=== PATIENT | male | born 1935 | race Caucasian/White ===

== ENCOUNTER 2017-04-19 13:23 | Inpatient (IN) | payer OTHER ==
[~2017-04-19] VITALS: Ht 170.2 cm; Wt 68.1 kg
[~2017-04-19 13:23] MED LIST: AMIODARONE HCL200 M1 PO; AMIODARONE HCL200 MG PO; AMIODARONE HCL400 M1 PO; ASPIR 8181 MG PO; ATORVASTATIN CA20 M1 PO; CARDIZEM I125 MG/25 IV; CARVEDILOL3.125 MG PO; CARVEDILOL6.25 MG PO; CIPRO 500MG (E500 MG PO; CLOPIDOGREL75 MG PO; COREG 12.5MG12.5 MG PO; FINASTERIDE5 M1 PO; LASIX20 M1 PO; LEVOXYL88 MCG PO; LIPITOR20 M2 PO; LISINOPRIL10 MG PO; MATZIM LA360 MG PO; METOPROLOL SUC100 M1 PO; METOPROLOL SUC200 M2 PO; MULTAQ 400MG400 MG PO; NASONEX0.05 MG/Ac; NITROFURANTOIN100 MG PO; OXYBUTYNIN5 MG PO; PANTOPRAZOLE SO40 M1 PO; PRINIVIL 5MG5 MG PO; PRINIVIL10 M1 PO; PROTONIX 20MG T20 MG PO; RIVA15T PO; SIMVASTATIN20 MG; SIMVASTATIN20 MG PO; SYNTHROID0.075 MG PO; TAMSULOSIN HCL0.4 M1 PO; TAMSULOSIN HYD0.4 MG PO; TYLENOL XSTR500 MG PO; XARELTO10 MG PO; XARELTO15 M2 PO; XARELTO15 MG PO
--- NOTE | 2017-04-19 14:21 | NUR ---
C/O WEAKNESS, COUGH, SOB X 5 DAYS. DXD WITH FLU ON 04/[address] STEVE. ALSO STATES HE FELL LAST NIGHT DUE TO WEAKNESS, LANDED ON BACK. DENIES PAIN.
--- NOTE | 2017-04-19 14:48 | NUR ---
PT TO ROOM16 BY WHEELCHAIR, CHANGED INTO HOSPITAL GOWN, PLACED ON PILING SETTER -PACED 70'S, O2SAT 88% ON RA, PT PLACED ON O2 NC 2.5L WITH O2SAT IMPROVEMENT 95%. RENE.SAM AT BEDSIDE FOR PT EVAL.
--- NOTE | 2017-04-19 14:53 | ED DYSPNEA/ASTHMA COMPLAINT ---
History of Present Illness General Chief Complaint: Lower Extremity Problems Stated Complaint: UNABLE TO WALK Source: patient Exam Limitations: no limitations Vital Signs & Intake/Output Vital Signs & Intake/Output Vital Signs Date Time Temp Pulse Resp B/P B/P Pulse O2 O2 Flow FiO2 Mean Ox Delivery Rate 04/19 1733 101.1 04/19 1730 101.1 69 18 166/74 97 Nasal 2.0L Cannula 04/19 1422 98.4 102 26 180/69 87 Room Air Allergies Coded Allergies: amoxicillin (Severe, HIVES 02/02/16) Reconcile Medications Amiodarone HCl 200 MG TABLET 1 TAB PO DAILY A FIB PLEASE START TAKING 08/21 ONWARDS PRIOR TO THAT TAKE THE 400 MG TABLET PRESCRIBED Atorvastatin Calcium 20 MG TABLET 1 TAB PO QPM CHOLESTEROL (Reported) Finasteride 5 MG TABLET 1 TAB PO DAILY PROSTATE (Reported) Furosemide (Lasix) (Unknown Strength) TABLET (Unknown Dose) PO DAILY DIURETIC (Reported) Levothyroxine Sodium 100 MCG TABLET 1 TAB PO DAILY AC THYROID (Reported) Lisinopril (Prinivil) 10 MG TABLET 1 TAB PO DAILY BP (Reported) Metoprolol Succinate 200 MG TAB.ER.24H 1 TAB PO QPM HEART/BLOOD (Reported) Pantoprazole Sodium 40 MG TABLET.DR 1 TAB PO QAM GI (Reported) Reason to Stop at ADM: on omeprazole in the hospital Primidone 50 MG TABLET 2 TAB PO QHS TREMORS (Reported) Rivaroxaban (Xarelto) 15 MG TABLET 1 TAB PO QPM BLOOD THINNER (Reported) Tamsulosin HCl 0.4 MG CAP.ER.24H 1 CAP PO QHS PROSTATE (Reported) Triage Note: C/O WEAKNESS, COUGH, X 5 DAYS. DXD WITH FLU ON 04/[address] STEVE. ALSO STATES HE FELL LAST NIGHT DUE TO WEAKNESS, LANDED ON BACK. Triage Nurses Notes Reviewed? yes Onset: Abrupt Duration: day(s):, constant, getting worse Timing: recent history Severity: moderate, severe HPI: 81-year-old male comes into emergency room with complaints of persistent cough, increased weakness, increased confusion and inability to walk. Patient was diagnosed with the flu. A Z-Quique by his primary care doctor. Patient has been persistently coughing. He was supposed to get a chest x-ray today but he was worse so they came here to the hospital. Denies chest pain abdominal pain or urinary symptoms. Denies any other associated symptoms. (ELO PEACE) Past History Travel History Traveled to [place] past 21 day No Medical History Any Pertinent Medical History? see below for history Neurological: vertigo, left endarterectomy EENT: CATARACTS REMOVED [place] Cardiovascular: AFIB, aflutter, cardiomyopathy, hypertension, hyperlipidemia, mitral regurgitation, paroxysmal atrial fibrillation mild cardiomyopathy (LVEF low normal) Respiratory: mild restrictive disease Gastrointestinal: GERD Hepatic: CHOLECYSTECTOMY Renal: benign prost hyperplasia Musculoskeletal: ARTHRITIS Endocrine: hypothyroidism Other Medical Hx: BPH, lt. carotid artery disease History of MRSA: No History of VRE: No History of CDIFF: No Pneumonia Vaccine: 11/14/13 Influenza Vaccine: 08/09/16 Surgical History Surgical History: LEFT SIDED PACEMAKER Psychosocial History Who do you live with Spouse Services at Home None What is your primary language Palestinian Tobacco Use: Never used ETOH Use: denies use Family History Family History, If Any: FATHER, , Age 40-50; Cause: Myocardial infarct. FH: CAD (coronary artery disease) BROTHER FH: CAD (coronary artery disease) SISTER FH: CAD (coronary artery disease) Hx Contributory? No (ELO PEACE) Review of Systems Review of Systems Constitutional: Reports: see HPI. EENTM: Reports: no symptoms. Respiratory: Reports: see HPI. Cardiovascular: Reports: no symptoms. GI: Reports: no symptoms. Genitourinary: Reports: no symptoms. Musculoskeletal: Reports: no symptoms. Skin: Reports: no symptoms. Neurological/Psychological: Reports: see HPI. Hematologic/Endocrine: Reports: no symptoms. Immunologic/Allergic: Reports: no symptoms. All Other Systems: Reviewed and Negative (ELO PEACE) Physical Exam Physical Exam General Appearance: well developed/nourished, alert, awake, mild distress Head: atraumatic, normal appearance Eyes: Bilateral: normal appearance. Ears, Nose, Throat: normal pharynx, normal ENT inspection Neck: normal inspection Respiratory: normal breath sounds, no respiratory distress Cardiovascular: irregularly irregular Gastrointestinal: soft Extremities: normal inspection Neurologic/Psych: no motor/sensory deficits Skin: intact, normal color Core Measures ACS in differential dx? No Severe Sepsis Present: No Septic Shock Present: No (ELO PEACE) Progress Differential Diagnosis: asthma, AMI, bronchitis, costochondritis, CHF, COPD, musculoskeletal pain, pericarditis, pulmonary embolism, pneumonia, pneumothorax, rib fracture, unstable angina, lisinopril induced cough, amiodarone induced COPD , Plan of Care: Orders Procedure Date/time Status Regular Diet 04/19 D Active LACTIC ACID 04/19 1941 Active Intake & Output 04/19 1810 Active Patient Data 04/19 1702 Active OXYGEN SETUP (GEN) 04/19 1654 Active Saline Lock 04/19 1654 Active Admit to inpatient 04/19 1654 Active Vital Signs 04/19 1654 Active Activity/Ambulation 04/19 1654 Active Code Status 04/19 1654 Active LACTIC ACID 04/19 1641 Complete URINALYSIS 04/19 1620 Complete Add-on Test (ER Only) 04/19 1609 Active BLOOD CULTURE 04/19 1609 Active Telemetry/Claims Assistant 04/19 1452 Active TROPONIN LEVEL 04/19 1452 Complete COMPREHENSIVE METABOLIC PANEL 04/19 1452 Complete CBC WITHOUT DIFFERENTIAL 04/19 1452 Complete B-TYPE NATRIURETIC PEP (BNP) 04/19 1452 Complete EKG 04/19 1452 Active Current Medications Sig/Andie Start time Last Medication Dose Stop Time Status Admin Ceftriaxone Sodium 1,000 MG ONCE ONE 04/19 1615 UNVr 04/19 (Rocephin) 04/19 1616 1733 Laboratory Tests 04/19/17 1723: Lactic Acid 1.2 04/19/17 1627: Urinalysis MOD H, Urine Color YEL, Urine Clarity CLDY H, Urine pH 6.0, Ur Specific [place] >= 1.030, Urine Protein 100 H, Urine Ketones NEG, Urine Nitrite POS H, Urine Bilirubin NEG, Urine Urobilinogen 0.2, Ur Leukocyte Esterase SMALL H, Ur Microscopic SEDIMENT EXAMINED, Urine RBC 1-3, Urine WBC 15 -25 H, Ur Epithelial Cells MOD H, Urine Bacteria PACKD H, Hyaline Casts 1-3 H, Granular Casts 5-10 H, Urine Mucus FEW, Urine Hemoglobin MOD H, Urine Glucose NEG 04/19/17 1529: Anion Gap 13, Estimated GFR 36 L, BUN/Creatinine Ratio 18.9, Glucose 99, Calcium 9.2, Total Bilirubin 1.2, AST 74 H, ALT 61, Alkaline Phosphatase 118, Troponin I 0.22 *H, Edv-W-[place]zz[place] Pept 7850 H, Total Protein 7.6, Albumin 3.7, Globulin 3.9, Albumin/Globulin Ratio 0.9 L, CBC w Diff MAN DIFF ORDERED, RBC 3.90 L, MCV 94.9 H, MCH 31.5 H, RDW 12.9, MPV 8.8, Gran % 91.5 H, Lymphocytes % 3.7 L, Monocytes % 4.4, Eosinophils % 0.3, Basophils % 0.1, Absolute Granulocytes 11.9 H, Segmented Neutrophils 92 H, Absolute Lymphocytes 0.5 L, Lymphocytes 4 L, Monocytes 3, Absolute Monocytes 0.6, Eosinophils 1, Absolute Eosinophils 0, Absolute Basophils 0, Platelet Estimate ADEQUATE, Normocytic RBCs VERIFIED, Polychromasia 1+, PUBS MCHC 33.2, Fld Total RBCs Counted 100 Microbiology 04/19 1722 BLOOD: Blood Culture - RECD 04/19 171 BLOOD: Blood Culture - RECD Diagnostic Imaging: Viewed by Me: Radiology Read. Discussed w/RAD: Radiology Read. Radiology Impression: EXAM TYPE: RAD - XRY-CHEST XRAY, PA AND LATERAL EXAMINATION: XR CHEST CLINICAL INFORMATION: Cough. COMPARISON: 08/12/2016 TECHNIQUE: 2 views of the chest were obtained. FINDINGS: Lung volumes are diminished. There are fairly diffuse patchy opacities identified bilaterally, most notably in the right mid and left lower lung celeste, without definite pleural effusions. Differential includes infiltrate and evolving pneumonia versus atypical-appearing pulmonary edema. Clinical correlation and follow up imaging should be considered. The heart appears mildly enlarged containing dual pacer leads with the generator on the left. IMPRESSION: Fairly diffuse patchy opacities bilaterally. Findings are most suggestive of infiltrate versus somewhat atypical-appearing pulmonary edema. Clinical correlation and interval follow up are recommended. DICTATED BY: MARLENE DIALLO MD DATE/TIME DICTATED: 04/19/171542 AGRICULTURE MECHANIC:ANDREA DATE/TIME TRANSCRIBED:04/19/171542 Initial ED EKG: normal sinus rhythm, rate (74), nonspecific ST T wave chg (ELO PEACE) Departure Departure Disposition: STILL A PATIENT Condition: Stable Clinical Impression Primary Impression: Acute exacerbation of CHF (congestive heart failure) Secondary Impressions: Elevated troponin, Hypoxia, Pneumonia Referrals: JADIEL STEVE MD (PCP/Family) Departure Forms: Customer Survey General Discharge Information (ELO PEACE) Admission Note Spoke With: ONEAL NIETO MD Documentation of Exam: Documentation of any treatments & extenuating circumstances including Concerns Regarding Discharge (functional status, medication knowledge or non-compliance, living conditions, etc.) that warrant an admission rather than observation: Supplemental oxygen and IV diuresis IV antibiotics serial lab exam cardiac monitoring cardiology evaluation and medication adjustment continuing care discharge planning PA/SOCK MENDER Co-Sign Statement Statement: ED Attending supervision documentation- x I saw and evaluated the patient. I have also reviewed all the pertinent lab results and diagnostic results. I agree with the findings and the plan of care as documented in the PA's/SOCK MENDER's documentation. [] I have reviewed the ED Record and agree with the PA's/SOCK MENDER's documentation. [] Additions or exceptions (if any) to the PAs/SOCK MENDER's note and plan are summarized below: [] (ИРИНА EDWARDS,NUZHAT) Critical Care Note Critical Care Note Critical Care Time: 30-74 min (40) (ELO PEACE)
--- NOTE | 2017-04-19 15:00 | NUR ---
PT TO XRAY
[2017-04-19] MEDS ORDERED: PRIMIDONE50 M1 PO (15:19)
[2017-04-19] MEDS ORDERED: LEVOTHYROXINE100 MC1 PO (15:19)
[2017-04-19 15:40] LABS: ABSOLUTE BASOPHIL COUNT 0 /CUMM (0.0-0.2); ABSOLUTE EOSINOPHIL COUNT 0 /CUMM (0.0-0.7); ABSOLUTE GRANULOCYTE CT 11.9 /CUMM (1.4-6.5); ABSOLUTE LYMPH COUNT 0.5 /CUMM (1.2-3.4); ABSOLUTE MONOCYTE COUNT 0.6 /CUMM (0.10-0.60); BASOPHIL % 0.1 % (0.0-2.0); EOSINOPHIL % 0.3 % (0-5); GRANULOCYTE % 91.5 % (42.2-75.2); MEAN CORPUSCULAR HGB 31.5 PG (27.0-31.0); MEAN CORPUSCULAR HGB CONC 33.2 G/DL (33.0-37.0); MEAN CORPUSCULAR VOLUME 94.9 FL (80.0-94.0); MEAN PLATELET VOLUME 8.8 FL (7.4-10.4); PLATELET COUNT 144 /CUMM (130-400); RBC DISTRIBUTION WIDTH 12.9 % (11.5-14.5)
--- NOTE | 2017-04-19 16:00 | RADIOLOGY REPORT ---
EXAMINATION: XR CHEST CLINICAL INFORMATION: Cough. COMPARISON: 08/12/2016 TECHNIQUE: 2 views of the chest were obtained. FINDINGS: Lung volumes are diminished. There are fairly diffuse patchy opacities identified bilaterally, most notably in the right mid and left lower lung celeste, without definite pleural effusions. Differential includes infiltrate and evolving pneumonia versus atypical-appearing pulmonary edema. Clinical correlation and follow up imaging should be considered. The heart appears mildly enlarged containing dual pacer leads with the generator on the left. IMPRESSION: Fairly diffuse patchy opacities bilaterally. Findings are most suggestive of infiltrate versus somewhat atypical-appearing pulmonary edema. Clinical correlation and interval follow up are recommended.
--- NOTE | 2017-04-19 16:19 | NUR ---
CRITICAL TEST RESULTS [id number] JAEL MACDONALD 81 M TESTS AND RESULTS: TROPONIN 0.22 Results received and read back by: PADMINI MOREIRA Results received date and time: 04/19/17 1619 The following provider was notified of the results, and read the results back: SAM LÓPEZ Notified date and time: 04/19/17 at 1615
--- NOTE | 2017-04-19 17:33 | History & Physical ---
UZMA EDWARDS,BENOIT 04/19/17 1779: General Information and HPI MD Statement: I have seen and personally examined JAEL MACDONALD and documented this H&P. The patient is a 81 year old M who presented with a patient stated chief complaint of []. Exam Limitations: no limitations History of Present Illness: Patient is a 81-year-old male with significant past medical history of vertigo, history of left endarterectomy, paroxysmal atrial fibrillation, hypertension, hyperlipidemia, MR, cardiomyopathy s/p pacemaker, GERD, hypothyroidism, history of cholecystectomy, BPH, arthritis, presented with chief complaints of generalized weakness, cough, shortness of breath since last 6 days. Patient claims that he was told as having flu 04/16, by Dr. Steve, and advised to have chest x-ray, but he was not able to get that done. Yesterday he felt very weak and lousy. At 4 o'clock in the morning when he was trying to get out of the comboard, he lost his balance and fell down. He is also complaining of cough with sputum, headache, diarrhea. Denies fever, chest pain, palpitation, swelling in the legs, increase number of pillows. Personal history- Now a days he stopped walking because of general weakness, cough, shortness of breath. He quit his smoking 30 years ago, he denies for alcohol and IV drug abuse. Leather Seasoner -Dr. Grady. Allergies/Medications Allergies: Coded Allergies: amoxicillin (Severe, HIVES 02/02/16) Home Med list Amiodarone HCl 200 MG TABLET 1 TAB PO DAILY A FIB PLEASE START TAKING 08/21 ONWARDS PRIOR TO THAT TAKE THE 400 MG TABLET PRESCRIBED Atorvastatin Calcium 20 MG TABLET 1 TAB PO QPM CHOLESTEROL (Reported) Finasteride 5 MG TABLET 1 TAB PO DAILY PROSTATE (Reported) Furosemide 20 MG TABLET 2 TAB PO DAILY DIURETIC (Reported) Levothyroxine Sodium 100 MCG TABLET 1 TAB PO DAILY AC THYROID (Reported) Lisinopril (Prinivil) 10 MG TABLET 1 TAB PO DAILY BP (Reported) Metoprolol Succinate 200 MG TAB.ER.24H 1 TAB PO QPM HEART/BLOOD (Reported) Pantoprazole Sodium 40 MG TABLET. 1 TAB PO QAM GI (Reported) Reason to Stop at ADM: on omeprazole in the hospital Primidone 50 MG TABLET 2 TAB PO QHS TREMORS (Reported) Rivaroxaban (Xarelto) 15 MG TABLET 1 TAB PO QPM BLOOD THINNER (Reported) Tamsulosin HCl 0.4 MG CAP.ER.24H 1 CAP PO QHS PROSTATE (Reported) Past History Travel History Traveled to [place] past 21 day No Medical History Neurological: vertigo, left endarterectomy EENT: CATARACTS REMOVED YUHAAVIATAM Cardiovascular: AFIB, aflutter, cardiomyopathy, hypertension, hyperlipidemia, mitral regurgitation, paroxysmal atrial fibrillation mild cardiomyopathy (LVEF low normal) Respiratory: mild restrictive disease Gastrointestinal: GERD Hepatic: CHOLECYSTECTOMY Renal: benign prost hyperplasia Musculoskeletal: ARTHRITIS Endocrine: hypothyroidism Other Medical Hx: BPH, lt. carotid artery disease History of MRSA: No History of VRE: No History of CDIFF: No Pneumonia Vaccine: 11/14/13 Influenza Vaccine: 08/09/16 Surgical History Surgical History: LEFT SIDED PACEMAKER Past Family/Social History Family History Relations & Conditions if any FATHER, , Age 40-50; Cause: Myocardial infarct. FH: CAD (coronary artery disease) BROTHER FH: CAD (coronary artery disease) SISTER FH: CAD (coronary artery disease) Psychosocial History Who Do You Live With? spouse Services at Home: None Primary Language: Algerian ETOH Use: denies use Living Will? no Functional Ability ADLs Independent: dressing, eating, toileting, bathing. Ambulation: independent IADLs Independent: shopping, housework, finances, food prep, telephone, transportation , medication admin. Review of Systems Review of Systems Constitutional: Reports: malaise, weakness. Denies: chills, fever. Cardiovascular: Denies: chest pain, orthopena, peripheral edema. Respiratory: Reports: cough, short of breath, sputum production, wheezing. GI: Reports: diarrhea. Denies: abdominal pain, bloating, constipation. Musculoskeletal: Reports: back pain. Skin: Denies: no symptoms. Neurological/Psychological: Denies: no symptoms. Exam & Diagnostic Data Last 24 Hrs of Vital Signs/I&O Vital Signs Date Time Temp Pulse Resp B/P B/P Pulse O2 O2 Flow FiO2 Mean Ox Delivery Rate 04/19 1900 98.4 63 16 138/78 98 Nasal 2.0L Cannula 04/19 1850 Nasal 2.0L Cannula 04/19 1817 99.8 04/19 1815 99.8 69 20 171/76 97 Nasal 2.0L Cannula 04/19 1733 101.1 04/19 1730 101.1 69 18 166/74 97 Nasal 2.0L Cannula 04/19 1450 95 Nasal 2.0L Cannula 04/19 1422 98.4 102 26 180/69 87 Room Air Intake & Output 04/19 1600 04/19 0800 06 0000 Intake Total Output Total Balance Patient 67.132 kg Weight Weight Reported by Patient Measurement Method Physical Exam General Appearance Alert, Oriented X3, Cooperative, No Acute Distress Skin flushing of the skin of the face Cardiovascular Normal S1, Normal S2 Lungs Normal Air Movement, occasional crackles Abdomen Soft, No Tenderness Neurological Normal Speech, he is hard of hearing , otherewise oriented to time place and person, he was moving all his limbs Extremities No Clubbing, No Cyanosis, No Edema Vascular Normal Pulses, Pulses Symmetrical Assessment/Plan Assessment: Patient is a 81-year-old male with significant past medical history of vertigo, history of left endarterectomy, paroxysmal atrial fibrillation, hypertension, hyperlipidemia, MR, cardiomyopathy s/p pacemaker, GERD, hypothyroidism, history of cholecystectomy, BPH, arthritis, presented with chief complaints of generalized weakness, cough, shortness of breath since last 6 days Vital signs -temperature 101.1, pulse 69, respiratory rate 18, blood pressure 166/74, SPO2 97% on 2 liters of nasal cannula Pertinent labs-hemoglobin 12.3, WBC 13, MCV 94.9, granulocytes 91.5, BUN 34, creatinine 1.8 (*baseline creatinine is 1), GFR 36, urine analysis-WBC 15-25, leukocyte esterase small, nitrite positive CXR -Fairly diffuse patchy opacities bilaterally. Findings are most suggestive of infiltrate versus somewhat atypical-appearing pulmonary edema. Echocardiogram 08/13/16 - LVEF-50%,MIld LAD,Mild LVH, Moderate MR,Right ventricular systolic pressure estimated at 42 mmHg. Plan - Pneumonia due to secondary bacterial infection, with hx of flu - * We'll admit the patient into general medical floor * We will give oxygen to keep SPO2 more than 92% * Please keep head end of the bed elevated * We will send blood culture, respiratory culture and follow them * We'll follow serum lactic acid level * Will start patient on injection ceftriaxone and azithromycin * Strict intake output charting Acute on chronic CHF * Troponin-0.22 * It can be due to demand ischemia. Chest x-ray showing ? Pulmonary edema * We'll follow serial troponins and EKGs * We'll place a cardiology consult and follow the recommendation * Strict intake output charting * Patient recently had echocardiogram Urine tract infection * urine analysis-WBC 15-25, leukocyte esterase small, nitrite positive * Patient denies any active symptoms * We'll follow the urine culture AF with controlled ventricular rate, coronary artery disease, hypertension, hypothyroidism * Continue Xeralto and all other home medication including metoprolol, lisinopril, furosemide, levothyroxine Diet -heart healthy diet DVT prophylaxis -ALP S/Xarelto CODE status - DNR/DNI As Ranked By This Provider Problem List: 1. Elevated troponin 2. Pneumonia Core Measures/Miscellaneous Acute Coronary Syndrome ACS Diagnosis: No Cerebrovascular Accident CVA/TIA Diagnosis: No Congestive Heart Failure CHF Diagnosis: No VTE (View Protocol) VTE Risk Factors: Age > 40, Immobility, paresis [facility] prophylaxis d/t: No contraindications No VTE Pharm Prophylaxis d/t: No contraindications VTE Diagnosis: No VTE Type: NONE VTE Confirmed by (Test): NONE Sepsis (View Protocol) Severe Sepsis Present: No Septic Shock Septic Shock Present: No Miscellaneous Documentation Attending Case Discussed With: ONEAL NIETO MD Primary Care Physician: JADIEL STEVE MD Patient sees these Specialists Leather Seasoner-Farshad Farrell MD Level of Patient Care: Telemetry ASHA CHUA 04/19/17 2891: Resident Review Statement Resident Statement: examined this patient, discussed with chemist intern Other Findings: Patient is 81-year-old gentleman with past medical history significant for paroxysmal atrial fibrillation on , metoprolol and amiodarone for rate control, history of CAD status post stent placement in September 2015, history of atrial flutter status post ablation, hypothyroidism, hypertension, dyslipidemia, left carotid endarterectomy came with chief complaint of worsening fatigue, weakness and persistent cough from couple of weeks. Patient had these symptoms for couple of weeks and also he had some subjective fevers as well for that he was seen by his PCP who told him he might having flu and also he recommended him to have chest x-ray which she couldn't get one because of worsening weakness. He denied chest pain, palpitations, any urinary or bowel complaints. He admits that he had off-and-on dizziness lately and had a mechanical fall last night when he lost balance while getting up from the commode. He denied any loss of consciousness or hitting his head. His vital signs on admission were temperature 98.4 later on he spiked fever of 101.1, pulse 102, respiratory rate 26, blood pressure 180/69 and he was saturating 87% on room air later on he was saturating 97% on 2 L nasal cannula Absent admission were WBC count 13.0, hemoglobin 12.3, hematocrit 37.0, platelet count 144, Sodium 136, potassium 4.7, BUN/creatinine 34, creatinine 1.8, troponin 0.22, proBNP 7850 Chest x-ray showed Fairly diffuse patchy opacities bilaterally. Findings are most suggestive of infiltrate versus somewhat atypical-appearing pulmonary edema. EKG showed normal sinus rhythm with no ST-T wave changes Physical examination Patient is alert and oriented 3 HEENT PERRLA, EOMI, neck supple, no JVD Chest bilateral rhonchi and basal crepitations Heart S1-S2 normal irregularly irregular heart rate with no added sounds Abdomen soft no organomegaly Extremities no edema or cyanosis No neurological deficit noted Assessment and plan Patient is 81-year-old gentleman with past medical history significant for paroxysmal atrial fibrillation on , metoprolol and amiodarone for rate control, history of CAD status post stent placement in September 2015, history of atrial flutter status post ablation, hypothyroidism, hypertension, dyslipidemia, left carotid endarterectomy came with chief complaint of worsening fatigue, weakness and persistent cough from couple of weeks. Chest x-ray was significant for air space opacity at the same time patient had elevated white cell count with elevated proBNP and troponins most likely is combination of CHF exacerbation and pneumonia with demand ischemia Problem list 1. Community-acquired pneumonia 2. CHF exacerbation 3. History of paroxysmal atrial fibrillation on Joey 4. Hypothyroidism 5. History of dyslipidemia 6. History of hypertension 8. Leukocytosis most likely due to underlying pneumonia Plan 1. We will admit patient on telemetry floor 2. Cardiology consultation 3. We will trend troponins and EKG to peak 4. We'll start patient on ceftriaxone and azithromycin for community-acquired pneumonia 5. We will send blood cultures as well as sputum cultures 6. We will send lactic acid as patient meets criteria for sirs 7. We will continue all his home medications 8. Patient was given 60 mg IV furosemide in ED we will hold any intravenous diuresis for now and we will follow cardiology recommendations regarding IV diuresis but we will continue his home medications Heart healthy diet Pharmacological DVT prophylaxis Patient is DNI DNR GERSON EDAWRDSONEAL 04/19/17 2100: Attending MD Review Statement Attending Statement Attending MD Statement: examined this patient, discuss w/resident/PA/DOWEL STICKER OPERATOR, agreed w/resident/PA/DOWEL STICKER OPERATOR, reviewed EMR data (avail) Attending Assessment/Plan: 81M PMH atrial fibrillation on amiodarone and Xarelto, history of a flutter status post ablation, CAD s/p PCI and stents in September 2015, peripheral vascular disease, history of left-sided carotid endarterectomy, hypothyroidism, HTN, HLD, 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 Febrile 101 on admission, rapid atrial fibrillation initially but now controlled in 80's after Cardizem, found to have bilateral opacities on CXR and mildly elevated troponin to 0.22. No ST changes on EKG. 1. Bilateral lower lobe pneumonia 2. Acute on chronic systolic CHF 3. Elevated troponin 4. Shortness of breath 5. Rapid atrial fibrillation 6. History of CAD Plan - Admit to telemetry - Start Ceftriaxone and Azithromycin - Sputum and blood cultures - Given 80mg IV Lasix in ED, monitor fluid status - Trend cardiac enzymes to peak - Serial EKG - Cardiology consult - Continue home medications - Given ASA in ED - DVT PPx
--- NOTE | 2017-04-19 17:35 | NUR ---
IV EST, PT MEDICATED WITH LASIX PER EMAR. URINAL PROVIDED. 2 SETS OF BC DRAWN AND SENT TO LAB. PT MEDICATED WITH ROCEPHINE AND ZITHROMAX INFUSING PER EMAR. TEMP 101.1, SAM LÓPEZ MADE AWARE, PT MEDICATED WITH TYLENOL PER EMAR. FOOD TRAY ORDERED.
--- NOTE | 2017-04-19 18:02 | NUR ---
ASSIGNMENT [id number]
--- NOTE | 2017-04-19 18:10 | NUR ---
REPORT GIVEN TO WAYNE BENITO TO TELE.
--- NOTE | 2017-04-19 18:16 | NUR ---
VOLODYMYR SFAFF AT BEDSIDE
--- NOTE | 2017-04-19 18:50 | NUR ---
ADMISSION NOTE: PATIENT ARRIVES TO ROOM VIA STRETCHER; A/OX3; VSS ON 2L; TELE MONITOR PATIENT IS NSR BUT HAS LCW PACER; PATIENT COMFORTED INTO BED; DENIES PAIN AND CP; ORIENTED TO ROOM AND CALL ALMANZAR; BED LOCKED IN LOW POSITION
[2017-04-19 19:00] VITALS: BP 138/78
[2017-04-19] MEDS ORDERED: FUROSEMIDE20 M1 PO (19:10)
--- NOTE | 2017-04-19 21:04 | Admission Certification ---
Admission Certification Certification Statement - As attending physician, I certify that at the time of - admission, based on clinical presentation, severity of - symptoms, need for further diagnostic testing and - therapeutic interventions, and risk of adverse outcomes - without in-hospital treatment, in my clinical assessment, - this patient requires an acute hospital stay for a minimum - of two nights or longer. I have also considered psychsocial - factors such as support system, advanced age, financial - issues, cognitive issues, and failed out-patient treatments, - past re-admission history, safety of patient, and lack of - compliance as applicable. Specific rationale supporting this admission is: Pneumonia with elevated troponin level
[2017-04-20] VITALS: BP 152/80
--- NOTE | 2017-04-20 00:08 | Event Note ---
Event Note Event Note: Follow up troponins 0.22-->0.44-->0.99, non specific T wave changes in lateral leads, no other changes noted. Patient not complaining of chest pain or shortness of breath. Called and informed second worker Dyeing Machine Tender regarding upward trend of troponins, recomended to continue to trend EKG and trop and more likely to be demand ischemia. Continue with current treatment. Patient is on Xarelto.
[2017-04-20 03:21] LABS: ABSOLUTE BASOPHIL COUNT 0 /CUMM (0.0-0.2); ABSOLUTE EOSINOPHIL COUNT 0.2 /CUMM (0.0-0.7); ABSOLUTE GRANULOCYTE CT 9.2 /CUMM (1.4-6.5); ABSOLUTE LYMPH COUNT 0.7 /CUMM (1.2-3.4); ABSOLUTE MONOCYTE COUNT 0.6 /CUMM (0.10-0.60); BASOPHIL % 0.3 % (0.0-2.0); EOSINOPHIL % 1.6 % (0-5); HEMATOCRIT 33.6 % (42-52); MEAN CORPUSCULAR HGB 31.5 PG (27.0-31.0); MEAN CORPUSCULAR HGB CONC 33.2 G/DL (33.0-37.0); MEAN CORPUSCULAR VOLUME 94.8 FL (80.0-94.0); MEAN PLATELET VOLUME 8.5 FL (7.4-10.4); PLATELET COUNT 175 /CUMM (130-400); RBC DISTRIBUTION WIDTH 12.6 % (11.5-14.5); RED BLOOD CELL CT 3.54 /CUMM (4.70-6.10); WHITE BLOOD CELL COUNT 10.8 /CUMM (4.8-10.8)
[2017-04-20 03:22] LABS: GRANULOCYTE % 85.5 % (42.2-75.2)
[2017-04-20 08:08] VITALS: BP 154/76
--- NOTE | 2017-04-20 10:27 | Patient Discharge Instructions ---
Discharge Instructions General Discharge Information You were seen/treated for: community acquired pneumonia Special Instructions: please follow up with your PCP with in a week of discharge. Please follow up with your shrinker with in a week of discharge. please take medication as advised. Diet Continue normal diet: No Recommended Diet: Heart Healthy Activity Full Activity/No Limits: No (as tolerated) Acute Coronary Syndrome Inclusion Criteria At DC or during hospital stay patient has or had the following: ACS DIAGNOSIS No Discharge Core Measures Meds if any: Prescribed or Continued at Discharge Meds if any: NOT Prescribed or Continued at Discharge Congestive Heart Failure Inclusion Criteria At DC or during hospital stay patient has or had the following: CHF DIAGNOSIS No Discharge Core Measures Meds if any: Prescribed or Continued at Discharge Meds if any: NOT Prescribed or Continued at Discharge Cerebrovascular accident Inclusion Criteria At DC or during hospital stay patient has or had the following: CVA/TIA Diagnosis No Discharge Core Measures Meds if any: Prescribed or Continued at Discharge Meds if any: NOT Prescribed or Continued at Discharge Venous thromboembolism Inclusion Criteria VTE Diagnosis No VTE Type NONE VTE Confirmed by (Test) NONE Discharge Core Measures - Per Current guidelines, there needs to be overlap - treatment for the first 5 days of Warfarin therapy. - If discharged on Warfarin prior to 5 days of - overlap therapy, the patient will need to be - assessed for post discharge needs including - *Post discharge parental anticoagulation - *Warfarin and/or parental anticoagulation education - *Follow up date to check INR post discharge At least 5 days overlap therapy as Inpatient No Meds if any: Prescribed or Continued at Discharge Note: Overlap Therapy is Warfarin and Anticoagulant Meds if any: NOT Prescribed or Continued at Discharge
--- NOTE | 2017-04-20 11:25 | Cons- Cardiology ---
General Information and HPI Consulting Request Date of Consult: 04/20/17 Requested By: MELLY EDWARDS,AMEE Loja Reason for Consult: CAD, cardiomyopathy Primary political analyst: Dr. 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 He presents to [facility] with a chief complaint of a few days of weakness associated with persistent cough productive of small amounts of clear sputum. Did note some associated shortness of breath but no associated chest pain, palpitations, orthopnea, paroxysmal nocturnal dyspnea, or increasing lower extremity edema. He was noted to be febrile on admission. He was also noted to possibly be in A. fib initially although telemetry and ECG shows sinus rhythm. On my interview with him this morning his main complaint was continued cough and weakness. Denies any headache, slurring of speech, syncope, or focal weakness. He does complain of poor appetite. Allergies/Medications Allergies: Coded Allergies: amoxicillin (Severe, HIVES 02/02/16) Home Med List: Amiodarone HCl 200 MG TABLET 1 TAB PO DAILY A FIB PLEASE START TAKING 08/21 ONWARDS PRIOR TO THAT TAKE THE 400 MG TABLET PRESCRIBED Atorvastatin Calcium 20 MG TABLET 1 TAB PO QPM CHOLESTEROL (Reported) Finasteride 5 MG TABLET 1 TAB PO DAILY PROSTATE (Reported) Furosemide 20 MG TABLET 2 TAB PO DAILY DIURETIC (Reported) Levothyroxine Sodium 100 MCG TABLET 1 TAB PO DAILY AC THYROID (Reported) Lisinopril (Prinivil) 10 MG TABLET 1 TAB PO DAILY BP (Reported) Metoprolol Succinate 200 MG TAB.ER.24H 1 TAB PO QPM HEART/BLOOD (Reported) Pantoprazole Sodium 40 MG TABLET.DR 1 TAB PO QAM GI (Reported) Reason to Stop at ADM: on omeprazole in the hospital Primidone 50 MG TABLET 2 TAB PO QHS TREMORS (Reported) Rivaroxaban (Xarelto) 15 MG TABLET 1 TAB PO QPM BLOOD THINNER (Reported) Tamsulosin HCl 0.4 MG CAP.ER.24H 1 CAP PO QHS PROSTATE (Reported) Current Medications: Current Medications Sig/Andie Start time Last Medication Dose Route Stop Time Status Admin Acetaminophen 650 MG Q6P PRN 04/19 1930 AC PO Acetaminophen 0 .STK-MED ONE 04/19 1740 DC PO Acetaminophen 975 MG ONCE ONE 04/19 1730 DC 04/19 PO 04/19 1731 1733 Amiodarone HCl 200 MG DAILY 04/19 1913 AC 04/20 PO 0920 Atorvastatin Calcium 20 MG QPM 04/19 2200 AC 04/19 PO 2150 Azithromycin 500 MG DAILY@1800 04/20 1800 AC Sodium Chloride 250 ML IV Azithromycin 500 MG ONCE ONE 04/19 1615 DC 04/19 Sodium Chloride 250 ML IV 04/19 1714 1733 Benzonatate 100 MG TID 04/20 1000 AC 04/20 PO 0922 Benzonatate 100 MG TIDPRN PRN 04/20 0430 DC 04/20 PO 0619 Ceftriaxone Sodium 1,000 MG DAILY@1800 04/20 1800 AC IV Ceftriaxone Sodium 0 .STK-MED ONE 04/19 1638 DC .ROUTE Ceftriaxone Sodium 1,000 MG ONCE ONE 04/19 1615 DC 04/19 IV 04/19 1616 1733 Finasteride 5 MG DAILY 04/19 1913 AC 04/20 PO 0920 Furosemide 40 MG DAILY 04/20 1000 AC 04/20 PO 0920 Furosemide 0 .STK-MED ONE 04/19 1637 DC IV Furosemide 60 MG ONCE ONE 04/19 1630 DC 04/19 IV 04/19 1631 1733 Guaifenesin/ 10 ML TID 04/20 1000 AC 04/20 Dextromethorphan PO 0922 Guaifenesin/ 10 ML Q4P PRN 04/20 0245 DC Dextromethorphan PO Ibuprofen 600 MG Q6P PRN 04/19 1930 DC PO Levothyroxine Sodium 0.1 MG DAILY AC 04/20 0700 AC 04/20 PO 0619 Lisinopril 10 MG DAILY 04/20 1000 AC 04/20 PO 0920 Metoprolol Succinate 200 MG DAILY 04/20 1000 AC 04/20 PO 0921 Oxycodone HCl 10 MG Q6P PRN 04/19 1930 AC PO Potassium Chloride 40 MEQ ONCE ONE 04/20 1600 AC PO 04/20 1601 Potassium Chloride 40 MEQ BID 04/20 0356 DC 04/20 PO 04/20 1001 0619 Primidone 100 MG AT BEDTIME 04/19 2200 AC 04/20 PO 0145 Rivaroxaban 15 MG QPM 04/190 AC 04/19 PO 2150 Tamsulosin HCl 0.4 MG AT BEDTIME 04/19 2200 AC 04/19 PO 2150 Review of Systems Review of Systems: Review of systems as per HPI. The remainder of a 10 point review of systems was reviewed and was otherwise negative. Past History Travel History Traveled to [place] past 21 day No Medical History Neurological: vertigo, left endarterectomy EENT: CATARACTS REMOVED [place] Cardiovascular: AFIB, aflutter, cardiomyopathy, hypertension, hyperlipidemia, mitral regurgitation, paroxysmal atrial fibrillation mild cardiomyopathy (LVEF low normal) Respiratory: mild restrictive disease Gastrointestinal: GERD Hepatic: CHOLECYSTECTOMY Renal: benign prost hyperplasia Musculoskeletal: ARTHRITIS Endocrine: hypothyroidism Other Medical Hx: BPH, lt. carotid artery disease Surgical History Surgical History: LEFT SIDED PACEMAKER Family History Relations & Conditions If Any: FATHER, , Age 40-50; Cause: Myocardial infarct. FH: CAD (coronary artery disease) BROTHER FH: CAD (coronary artery disease) SISTER FH: CAD (coronary artery disease) Psychosocial History Who Do You Live With? spouse Services at Home: None Primary Language: German Smoking Status: Former Smoker ETOH Use: denies use Living Will? no Functional Ability ADLs Independent: dressing, eating, toileting, bathing. Ambulation: independent IADLs Independent: shopping, housework, finances, food prep, telephone, transportation , medication admin. ECHO Results (as available) Report: May 2015: [id number] moderate mitral regurgitation with no significant pulmonary hypertension Exam & Diagnostic Data Vital Signs and I&O Vital Signs Date Time Temp Pulse Resp B/P B/P Pulse O2 O2 Flow FiO2 Mean Ox Delivery Rate 04/20 0921 150/70 04/20 0920 150/70 04/20 0920 150/70 04/20 0826 95 Nasal 2.0L Cannula 04/20 0808 98.8 76 18 154/76 96 Nasal 2.0L Cannula 04/20 0000 Nasal 2.0L Cannula 04/20 0000 98.1 66 16 152/80 97 Nasal Cannula 04/19 2153 Nasal 2.0L Cannula 04/19 2150 142/90 04/19 215 60 142/90 04/19 1900 98.4 63 16 138/78 98 Nasal 2.0L Cannula 04/19 1850 Nasal 2.0L Cannula 04/19 1817 99.8 04/19 1815 99.8 69 20 171/76 97 Nasal 2.0L Cannula 04/19 1733 101.1 04/19 1730 101.1 69 18 166/74 97 Nasal 2.0L Cannula 04/19 1450 95 Nasal 2.0L Cannula 04/19 1422 98.4 102 26 180/69 87 Room Air Intake & Output 04/20 0804/20 0000 04/19 1600 04/19 0800 04/19 0000 Intake Total 150 490 Output Total 100 400 Balance 50 90 Intake, IV 0 250 Intake, Oral 150 240 Number 0 Bowel Movements Output, Urine 100 400 Patient 148 lb 148 lb 148 lb Weight Weight Chair scale Chair scale Reported by Patient Measurement Method Physical Exam: General: no apparent distress. Alert. Eyes: No obvious scleral icterus. HEENT: No jugular venous distention or abnormal jugular venous pulsations. Cardiovascular: Normal intensity S1/S2. Regular. Pacemaker noted. Respiratory: Mildly decreased air entry without rales Abdomen: Soft, nontender with no guarding or rebound tenderness. Musculoskeletal: No clubbing or cyanosis noted, no edema Skin: No obvious rashes or ulcerations. Neurologic: No gross focal deficits noted. Labs/Jonathon Results: Laboratory Tests 04/20 04/20 04/20 0900 0300 0300 Chemistry Sodium (137 - 145 mmol/L) 138 Potassium (3.5 - 5.1 mmol/L) 3.2 L Chloride (98 - 107 mmol/L) 102 Carbon Dioxide (22 - 30 mmol/L) 25 Anion Gap (5 - 16) 11 BUN (9 - 20 mg/dL) 35 H Creatinine (0.7 - 1.2 mg/dL) 1.9 H Estimated GFR (>60 ml/min) 34 L BUN/Creatinine Ratio (7 - 25 %) 18.4 Lactic Acid (0.7 - 2.1 mmol/L) 1.9 Magnesium (1.6 - 2.3 mg/dL) 2.5 H Troponin I (<0.11 ng/ml) 1.45 *H 0.99 *H Hematology CBC w Diff NO MAN DIFF REQ WBC (4.8 - 10.8 /CUMM) 10.8 RBC (4.70 - 6.10 /CUMM) 3.54 L Hgb (14.0 - 18.0 G/DL) 11.1 L Hct (42 - 52 %) 33.6 L MCV (80.0 - 94.0 FL) 94.8 H MCH (27.0 - 31.0 PG) 31.5 H RDW (11.5 - 14.5 %) 12.6 Plt Count (130 - 400 /CUMM) 175 MPV (7.4 - 10.4 FL) 8.5 Gran % (42.2 - 75.2 %) 85.5 H Lymphocytes % (20.5 - 51.1 %) 6.7 L Monocytes % (1.7 - 9.3 %) 5.9 Eosinophils % (0 - 5 %) 1.6 Basophils % (0.0 - 2.0 %) 0.3 Absolute Granulocytes (1.4 - 6.5 /CUMM) 9.2 H Absolute Lymphocytes (1.2 - 3.4 /CUMM) 0.7 L Absolute Monocytes (0.10 - 0.60 /CUMM) 0.6 Absolute Eosinophils (0.0 - 0.7 /CUMM) 0.2 Absolute Basophils (0.0 - 0.2 /CUMM) 0 PUBS MCHC (33.0 - 37.0 G/DL) 33.2 04/19 04/19 04/19 04/19 2236 2030 2030 1723 Chemistry Lactic Acid (0.7 - 2.1 mmol/L) Cancelled 1.9 1.2 Troponin I (<0.11 ng/ml) 0.44 *H 04/19 04/19 1627 1529 Chemistry Sodium (137 - 145 mmol/L) 136 L Potassium (3.5 - 5.1 mmol/L) 4.7 Chloride (98 - 107 mmol/L) 102 Carbon Dioxide (22 - 30 mmol/L) 21 L Anion Gap (5 - 16) 13 BUN (9 - 20 mg/dL) 34 H Creatinine (0.7 - 1.2 mg/dL) 1.8 H Estimated GFR (>60 ml/min) 36 L BUN/Creatinine Ratio (7 - 25 %) 18.9 Glucose (65 - 99 mg/dL) 99 Calcium (8.4 - 10.2 mg/dL) 9.2 Total Bilirubin (0.2 - 1.3 mg/dL) 1.2 AST (17 - 59 U/L) 74 H ALT (21 - 72 U/L) 61 Alkaline Phosphatase (< 127 U/L) 118 Troponin I (<0.11 ng/ml) 0.22 *H [id number] Pept (<125 pg/mL) 7850 H Total Protein (6.3 - 8.2 g/dL) 7.6 Albumin (3.5 - 5.0 g/dL) 3.7 Globulin (1.9 - 4.2 gm/dL) 3.9 Albumin/Globulin Ratio (1.1 - 2.2 %) 0.9 L Hematology CBC w Diff MAN DIFF ORDERED WBC (4.8 - 10.8 /CUMM) 13.0 H RBC (4.70 - 6.10 /CUMM) 3.90 L Hgb (14.0 - 18.0 G/DL) 12.3 L Hct (42 - 52 %) 37.0 L MCV (80.0 - 94.0 FL) 94.9 H MCH (27.0 - 31.0 PG) 31.5 H RDW (11.5 - 14.5 %) 12.9 Plt Count (130 - 400 /CUMM) 144 MPV (7.4 - 10.4 FL) 8.8 Gran % (42.2 - 75.2 %) 91.5 H Lymphocytes % (20.5 - 51.1 %) 3.7 L Monocytes % (1.7 - 9.3 %) 4.4 Eosinophils % (0 - 5 %) 0.3 Basophils % (0.0 - 2.0 %) 0.1 Absolute Granulocytes (1.4 - 6.5 /CUMM) 11.9 H Segmented Neutrophils (42.2 - 75.2 %) 92 H Absolute Lymphocytes (1.2 - 3.4 /CUMM) 0.5 L Lymphocytes (20.5 - 51.1 %) 4 L Monocytes (1.7 - 9.3 %) 3 Absolute Monocytes (0.10 - 0.60 /CUMM) 0.6 Eosinophils (0 - 5.0 %) 1 Absolute Eosinophils (0.0 - 0.7 /CUMM) 0 Absolute Basophils (0.0 - 0.2 /CUMM) 0 Platelet Estimate (ADEQUATE) ADEQUATE Normocytic RBCs VERIFIED Polychromasia 1+ PUBS MCHC (33.0 - 37.0 G/DL) 33.2 Other Body Source Fld Total RBCs Counted (%) 100 Urines Urinalysis MOD H Urine Color (YEL,AMB,STR) YEL Urine Clarity (CLEAR) CLDY H Urine pH (5.0 - 8.0) 6.0 Ur Specific [place] (1.001 - 1.035) >= 1.030 Urine Protein (NEG,<30 MG/DL) 100 H Urine Ketones (NEG) NEG Urine Nitrite (NEG) POS H Urine Bilirubin (NEG) NEG Urine Urobilinogen (0.1 - 1.0 EU/dl) 0.2 Ur Leukocyte Esterase (NEG) SMALL H Ur Microscopic SEDIMENT EXAMINED Urine RBC (0 - 5 /HPF) 1-3 Urine WBC (0 - 2 /HPF) 15-25 H Ur Epithelial Cells (NONE,FEW) MOD H Urine Bacteria (NEG/NONE) PACKD H Hyaline Casts (0/LPF) 1-3 H Granular Casts (NONE /LPF) 5-10 H Urine Mucus (FEW,NONE) FEW Urine Hemoglobin (NEG) MOD H Urine Glucose (N MG/DL) NEG Diagnostic Data EKG Results Tracing was personally reviewed and shows sinus rhythm at 72 bpm with poor wave progression CXR Results IMPRESSION: Fairly diffuse patchy opacities bilaterally. Findings are most suggestive of infiltrate versus somewhat atypical-appearing pulmonary edema. Clinical correlation and interval follow up are recommended. Other Results Telemetry tracings were personally reviewed and show sinus rhythm Recent echocardiogram from March 2017 shows ejection fraction 45-50% with pulmonary hypertension, pacemaker noted Assessment/Plan Assessment/Plan 1. Pneumonia with demand ischemia 2. Paroxysmal atrial fibrillation on chronic anticoagulation, history of prior atrial flutter ablation 3. Chronic renal insufficiency 4. Coronary artery disease with prior PCI and cardiac catheterization September 2015 with no new obstructive disease 5. Peripheral vascular disease with prior CEA 6. History of permanent pacemaker 7. Pulmonary hypertension by echocardiogram 8. 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 No evidence of decompensated congestive heart failure at this time. He should be continued on his baseline cardiac medications. He had a recent echocardiogram in our office as above. The troponins are likely due to demand ischemia and he is already fully anticoagulated; would trend the troponins until they begin to decrease. Antibiotic regimen per the medical team. Would continue on telemetry, he is currently in sinus rhythm. Noe Vega MD [facility] Consult Acknowledgment - Thank you for your consult request.
--- NOTE | 2017-04-20 12:37 | PN- Att Addend ---
Attending MD Review Statement Attending Statement Attending MD Statement: examined this patient, discuss w/resident/PA/GUM PULLER, agreed w/resident/PA/GUM PULLER, reviewed EMR data (avail), discussed w/nursing, discussed w/ case mgmt Attending Assessment/Plan: 04/20/17 0900: Troponin I 1.45 *H 04/20/17 0300: Lactic Acid 1.9, Troponin I 0.99 *H 04/20/17 0300: Anion Gap 11, Estimated GFR 34 L, BUN/Creatinine Ratio 18.4, Magnesium 2.5 H, CBC w Diff NO MAN DIFF REQ, RBC 3.54 L, MCV 94.8 H, MCH 31.5 H, RDW 12.6, MPV 8.5, Gran % 85.5 H, Lymphocytes % 6.7 L, Monocytes % 5.9, Eosinophils % 1.6, Basophils % 0.3, Absolute Granulocytes 9.2 H, Absolute Lymphocytes 0.7 L, Absolute Monocytes 0.6, Absolute Eosinophils 0.2, Absolute Basophils 0, PUBS MCHC 33.2 04/19/17 2236: Lactic Acid Cancelled 04/19/17 2030: Troponin I 0.44 *H 04/19/17 2030: Lactic Acid 1.9 04/19/17 1723: Lactic Acid 1.2 04/19/17 1627: Urinalysis MOD H, Urine Color YEL, Urine Clarity CLDY H, Urine pH 6.0, Ur Specific [place] >= 1.030, Urine Protein 100 H, Urine Ketones NEG, Urine Nitrite POS H, Urine Bilirubin NEG, Urine Urobilinogen 0.2, Ur Leukocyte Esterase SMALL H, Ur Microscopic SEDIMENT EXAMINED, Urine RBC 1-3, Urine WBC 15 -25 H, Ur Epithelial Cells MOD H, Urine Bacteria PACKD H, Hyaline Casts 1-3 H, Granular Casts 5-10 H, Urine Mucus FEW, Urine Hemoglobin MOD H, Urine Glucose NEG 04/19/17 1529: Anion Gap 13, Estimated GFR 36 L, BUN/Creatinine Ratio 18.9, Glucose 99, Calcium 9.2, Total Bilirubin 1.2, AST 74 H, ALT 61, Alkaline Phosphatase 118, Troponin I 0.22 *H, Yme-M-Fnhrmwjwcvj Pept 7850 H, Total Protein 7.6, Albumin 3.7, Globulin 3.9, Albumin/Globulin Ratio 0.9 L, CBC w Diff MAN DIFF ORDERED, RBC 3.90 L, MCV 94.9 H, MCH 31.5 H, RDW 12.9, MPV 8.8, Gran % 91.5 H, Lymphocytes % 3.7 L, Monocytes % 4.4, Eosinophils % 0.3, Basophils % 0.1, Absolute Granulocytes 11.9 H, Segmented Neutrophils 92 H, Absolute Lymphocytes 0.5 L, Lymphocytes 4 L, Monocytes 3, Absolute Monocytes 0.6, Eosinophils 1, Absolute Eosinophils 0, Absolute Basophils 0, Platelet Estimate ADEQUATE, Normocytic RBCs VERIFIED, Polychromasia 1+, PUBS MCHC 33.2, Fld Total RBCs Counted 100 Microbiology 04/20 0300 NASOPHARYN: Influenza Virus A & B Rapid Smear - COMP Vital Signs Date Time Temp Pulse Resp B/P B/P Pulse O2 O2 Flow FiO2 Mean Ox Delivery Rate 04/20 0921 150/70 04/20 0920 150/70 04/20 0920 150/70 04/20 0826 95 Nasal 2.0L Cannula 04/20 0808 98.8 76 18 154/76 96 Nasal 2.0L Cannula 04/20 0000 Nasal 2.0L Cannula 04/20 0000 98.1 66 16 152/80 97 Nasal Cannula 04/19 2153 Nasal 2.0L Cannula 04/19 2150 142/90 04/19 2150 60 142/90 04/19 1900 98.4 63 16 138/78 98 Nasal 2.0L Cannula 04/19 1850 Nasal 2.0L Cannula 04/19 1817 99.8 04/19 1815 99.8 69 20 171/76 97 Nasal 2.0L Cannula 04/19 1733 101.1 04/19 1730 101.1 69 18 166/74 97 Nasal 2.0L Cannula 04/19 1450 95 Nasal 2.0L Cannula 04/19 1422 98.4 102 26 180/69 87 Room Air Patient seen and examined at bedside. Discussed with patient the care plan 81-year-old male with past medical history of the atrial fibrillation on Xarelto and amiodarone, 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 Patient on chest x- ray was found to have bilateral patchy opacities suggestive of pneumonia. Community-acquired pneumonia with chest x-ray showing bilateral patchy opacities. Patient currently is on ceftriaxone and Zithromax we will continue with that. Type II myocardial infarction secondary to above-we will continue to trend the troponin patient is on Xarelto. Seen by cardiology and we will follow-up with the recommendations. Hypoxic respiratory failure secondary to pneumonia-patient's oxygen saturation in ER was 87% on 2 L. Continue with supplemental oxygen therapy for now. Urinary tract infection-we will follow up on urine cultures and continue patient on ceftriaxone for now.
--- NOTE | 2017-04-20 16:00 | PN- Housestaff ---
Subjective Follow-up For: Community-acquired pneumonia Complaints: dry cough, postnasal drip Subjective: Patient is seen and examined at the bedside. He was complaining of being lousy and having dry cough with postnasal drip. He denies any fever, nausea, vomiting, chest pain, abdominal pain, constipation, diarrhea. Review of Systems Constitutional: Reports: malaise, weakness. Respiratory: Reports: cough, short of breath. Gastrointestinal: Denies: no symptoms. Genitourinary: Denies: no symptoms. Musculoskeletal: Denies: no symptoms. Neurological/Psychological: Denies: no symptoms. Objective Last 24 Hrs of Vital Signs/I&O Vital Signs Date Time Temp Pulse Resp B/P B/P Pulse O2 O2 Flow FiO2 Mean Ox Delivery Rate 04/20 1611 97.9 65 20 130/70 91 04/20 0921 150/70 04/20 0920 150/70 04/20 0920 150/70 04/20 0826 95 Nasal 2.0L Cannula 04/20 0808 98.8 76 18 154/76 96 Nasal 2.0L Cannula 04/20 0000 Nasal 2.0L Cannula 04/20 0000 98.1 66 16 152/80 97 Nasal Cannula 04/19 2153 Nasal 2.0L Cannula 04/19 2150 142/90 04/19 2150 60 142/90 04/19 1900 98.4 63 16 138/78 98 Nasal 2.0L Cannula 04/19 1850 Nasal 2.0L Cannula 04/19 1817 99.8 04/19 1815 99.8 69 20 171/76 97 Nasal 2.0L Cannula 04/19 1733 101.1 04/19 1730 101.1 69 18 166/74 97 Nasal 2.0L Cannula Intake & Output 04/20 1600 07 0800 04/20 0000 Intake Total 400 150 490 Output Total 400 100 400 Balance 0 50 90 Intake, IV 0 250 Intake, Oral 400 150 240 Number 3 0 Bowel Movements Output, Urine 400 100 400 Patient 66.905 kg 66.905 kg Weight Weight Chair scale Chair scale Measurement Method Physical Exam General Appearance: Alert, Oriented X3, Cooperative, Mild Distress Cardiovascular: Normal S1, Normal S2 Lungs: mild basilar crackles Abdomen: Soft, No Tenderness Neurological: Normal Speech Extremities: No Clubbing, No Cyanosis, No Edema, Normal Pulses Vascular: Normal Pulses, Pulses Symmetrical Assessment/Plan Assessment: Patient is a 81-year-old male with significant past medical history of vertigo, history of left endarterectomy, paroxysmal atrial fibrillation, hypertension, hyperlipidemia, MR, cardiomyopathy s/p pacemaker, GERD, hypothyroidism, history of cholecystectomy, BPH, arthritis, presented with chief complaints of generalized weakness, cough, shortness of breath since last 6 days Vital signs -temperature 97.9, pulse 65, respiratory rate 40, blood pressure 130 /70, SPO2 91% on room air CXR -Fairly diffuse patchy opacities bilaterally. Findings are most suggestive of infiltrate versus somewhat atypical-appearing pulmonary edema. Echocardiogram 08/13/16 - LVEF-50%,MIld LAD,Mild LVH, Moderate MR,Right ventricular systolic pressure estimated at 42 mmHg. Pertinent labs-WBC 10.8, hemoglobin 11.1, hematocrit 33.6, creatinine - 1.9, Plan - Pneumonia due to secondary bacterial infection, with hx of flu - * We will continue oxygen to keep SPO2 more than 92% * Please keep head end of the bed elevated * We will follow blood culture, respiratory culture and urine culture * Will continue inj ceftriaxone and azithromycin * Strict intake output charting * we added tesslon perls and Guuiaphenasin for cough * TRC/Neb Acute on chronic CHF * Troponin-0.22, 0.44, 0.9 in, 1.45, 1.72 * Discussed with multimedia manager and they think demand ischemia. Chest x-ray showing ? Pulmonary edema * We'll follow serial troponins and EKGs till it trended down * We'll follow cardiology recommendation * Strict intake output charting * Patient recently had echocardiogram Urine tract infection * urine analysis-WBC 15-25, leukocyte esterase small, nitrite positive * Patient denies any active symptoms * We'll follow the urine culture AF with controlled ventricular rate, coronary artery disease, hypertension, hypothyroidism * Continue Xeralto and all other home medication including metoprolol, lisinopril, furosemide, levothyroxine Diet -heart healthy diet DVT prophylaxis -ALP S/Xarelto CODE status - DNR/DNI Problem List: 1. Pneumonia 2. Elevated troponin Pain Ratin Pain Location: not applicable Pain Goal: Remain pain free Pain Plan: avoid NSAIDs Tomorrow's Labs & Rationales: cbc, bep for follow up DVT/Prophylaxis: mechanical, pharmacological
[2017-04-20 16:11] VITALS: BP 130/70
--- NOTE | 2017-04-20 21:00 | NUR ---
DURING PT INCONTINENCE CARE, PT WAS NOTED TO BE UNABLE TO MOVE R ARM TO HELP ROLL AND GRAB ONTO BAR. WHEN ASSESSED, PT WAS ABLE TO LIFT R ARM BUT NOT HOLD IT UP. BP 152/78, HR 73 NSR, T98.8, RR 20, 02 94% ON 2L. PT ABLE TO LIFT BOTH LEGS OFF BED, AOX3, NO FACIAL DROOP NOTED, R HAND GRASP NOTED TO BE MUCH WEAKER THAN L. SPEECH SLOW, PT SLOW TO RESPOND TO QUESTIONS. DR JUDY MA PAGED IMMEDIATELY AND CAME TO SEE PATIENT. RAPID RESPONSE AND STROKE ALERT CALLED, PT WENT FOR HEAD CT. WILL INITIATE Q2H NEURO CHECKS AND WILL CONTINUE TO MONITOR PATIENT.
--- NOTE | 2017-04-20 21:47 | Event Note ---
Event Note Event Note: Around 9:16 pm was called by nursing staff that patient was noted to have weakness of RUE. On assessement, he was slow to answer questions and would only answer some questions, but answered appropriately, no dysarthria noted. When asked, he was not able to lift up his right arm. On examination: Vitals: Temperature 98.8, BP 152/78, heart rate 73, O2 saturation 94%, fingerstick 172 Was able to answer that he was at [facility] Heent: PERRL CVS: S1,S2 Neuro: no facial drop noted, no dyarthria cranial nerves grossly normal Power 3-4/5 b/l LE, 0/5 RUE, 4/5 LUE Assessment/plan: 81-year-old gentleman past history significant for A. fib on Xarelto, hypothyroidism admitted for pneumonia and to have demand ischemia segmented pneumonia now presenting with new onset right upper extremity weakness. Possible TIA versus stroke Rapid response and stroke code was called Stat CT head, troponin/ EKG done, ordered cbc, bep,mag discussed with on-call neurologist Dr. Rasheed. Patient not a candidate for TPA as he received Xarelto today. Recomended CTA head and neck however patient's creatinine is 1.9. After speaking to his , she stated that she noticed some changes in him earlier today ( that he was not himself). If that is the case his symptoms might have started earlier and therefore he is out of the window for possible thrombolectomy. Decision was made to forgo the CTA. 10:30 pm Update troponin continued to trending upwards 1.92, continue to follow-up, EKG showed no new changes from previous EKGs CT head negative for acute intracranial hemorrhage or territorial infarction updated Dr Rasheed, recomended MRI head and b/l carotid US , start ASA 81 mg and continue Xarelto. Attending was informed of the above events. troponin trending up (2.23), called and informed Dr. Vega. Continue current management. f/up trop/ekg 8am
--- NOTE | 2017-04-20 22:02 | CT SCAN REPORT ---
EXAMINATION: CT HEAD WITHOUT CONTRAST CLINICAL INFORMATION: Sudden weakness. Rule out stroke. COMPARISON: Head CT from 08/13/2016. TECHNIQUE: Contiguous axial imaging was performed from the skull base to vertex without intravenous administration of contrast. DLP: 1178.02 mGy-cm FINDINGS: There is no evidence of acute intracranial hemorrhage or territorial infarction. No abnormal mass effect or midline shift is seen. Ryder to white matter differentiation is well preserved. There is low density projecting over the central portion of the chanell, however, this is suspected to be due to beam hardening artifact. No extra-axial fluid collections are identified. There is no hydrocephalus. Moderate diffuse parenchymal volume loss is noted. Extensive chronic white matter microangiopathic changes are noted with diffuse parenchymal volume loss The osseous structures and soft tissues are normal. The mastoid air cells and visualized portions of the paranasal sinuses are well aerated. IMPRESSION: No acute intracranial hemorrhage or territorial infarction. Extensive chronic white matter disease and parenchymal volume loss, for which the possibility of a focal acute ischemic process cannot be conclusively ruled out.
[2017-04-21 00:21] VITALS: BP 128/72
--- NOTE | 2017-04-21 03:45 | NUR ---
PT VERY DROWSY BUT AROUSABLE, BUT FALLING ASLEEP DURING NEURO CHECK ASSESSMENT. WHEN ASKED HIS AGE PATIENT REPORTED "25" THEN CORRECTED HIMSELF SAYING "83", WHICH IS STILL INCORRECT. RESPONDED TO COMMANDS TO MAKE FISTS AND OPEN/CLOSE EYES. R HAND GRASP STILL VERY WEAK. DID NOT RESPOND TO COMMANDS TO LIFT OR MOVE LEGS. BP 144/76, HR 73, T 100.0F, 02 93% ON 3L, RR 20. DR MA NOTIFIED OF NEURO CHECK AND TEMP. ORDER OBTAINED FOR IV TYLENOL. WILL CONTINUE TO MONITOR
[2017-04-21 03:48] LABS: ABSOLUTE BASOPHIL COUNT 0 /CUMM (0.0-0.2); ABSOLUTE EOSINOPHIL COUNT 0 /CUMM (0.0-0.7); ABSOLUTE GRANULOCYTE CT 13.4 /CUMM (1.4-6.5); ABSOLUTE LYMPH COUNT 0.3 /CUMM (1.2-3.4); ABSOLUTE MONOCYTE COUNT 0.6 /CUMM (0.10-0.60); BASOPHIL % 0 % (0.0-2.0); EOSINOPHIL % 0.1 % (0-5); HEMATOCRIT 33.9 % (42-52); MEAN CORPUSCULAR HGB 31.6 PG (27.0-31.0); MEAN CORPUSCULAR HGB CONC 33.2 G/DL (33.0-37.0); MEAN CORPUSCULAR VOLUME 95.3 FL (80.0-94.0); PLATELET COUNT 147 /CUMM (130-400); RBC DISTRIBUTION WIDTH 12.9 % (11.5-14.5); RED BLOOD CELL CT 3.56 /CUMM (4.70-6.10); WHITE BLOOD CELL COUNT 14.3 /CUMM (4.8-10.8)
[2017-04-21 04:05] LABS: GRANULOCYTE % 93.3 % (42.2-75.2)
--- NOTE | 2017-04-21 06:00 | NUR ---
PT NOTED TO HAVE NEW R FACIAL DROOP. ANSWERED YES AND NO TO SOME QUESTIONS BUT NO OTHER WORDS SPOKEN. ABLE TO GRASP L HAND ON DEMAND, R ARM FLACID. UNABLE TO RAISE/MOVE LEGS ON DEMAND. BP 150/82, HR 73, RR 20, O2 95% ON 3L, T 98.9F. PT DROWSY/AROUSABLE. DR. MA NOTIFIED OF PT'S WORSENING NEURO STATUS, SHE IS NOW AT BEDSIDE.
[2017-04-21 06:45] VITALS: BP 150/82
--- NOTE | 2017-04-21 07:44 | PN- Housestaff ---
Subjective Follow-up For: Acute stroke Community-acquired pneumonia Complaints: feeling lousy Subjective: Patient seen and examined at the bedside. He was feeling very weak and lousy. He was having weakness in his right upper and the lower limbs. He was not able to have any movement even after asking many times. Review of Systems Constitutional: Denies: no symptoms. Comments: patient is c/o feeling lowsy, otherwise he denies for any complain Objective Last 24 Hrs of Vital Signs/I&O Vital Signs Date Time Temp Pulse Resp B/P B/P Pulse O2 O2 Flow FiO2 Mean Ox Delivery Rate 04/21 0844 97.6 75 18 120/80 95 Nasal 3.0L Cannula 04/21 0645 98.9 73 20 150/82 95 Nasal 3.0L Cannula 04/21 0455 98.9 04/21 0356 100.0 04/21 0037 93 Nasal 3.0L Cannula 04/21 0021 99.6 71 20 128/72 90 Nasal 3.0L Cannula 04/21 0000 Nasal 3.0L Cannula 04/20 2112 78 152/78 04/20 1732 95 Nasal 2.0L Cannula 04/20 1611 97.9 65 20 130/70 91 Intake & Output 04/21 1600 08 0800 08 0000 Intake Total 100 480 Output Total Balance 100 480 Intake, IV 100 Intake, Oral 0 480 Number 2 2 Bowel Movements Physical Exam General Appearance: Cooperative, No Acute Distress, he was feeling drowsy, he was not able to answer the most of question. although voice is clear and speech is articulated Cardiovascular: Normal S1, Normal S2, murmur present Lungs: Clear to Auscultation, Normal Air Movement Abdomen: Soft, No Tenderness Neurological: right upper and lower limb - 0/5, planter was not able to elicit, lrft planter is downgoing, right sided facial droop, pupoils are round and reactive, speech output was there and comprhencible, articulation was proper Extremities: No Clubbing, No Cyanosis, No Edema, Normal Pulses Vascular: Normal Pulses, Pulses Symmetrical Assessment/Plan Assessment: Patient is a 81-year-old male with significant past medical history of vertigo, history of left endarterectomy, paroxysmal atrial fibrillation, hypertension, hyperlipidemia, MR, cardiomyopathy s/p pacemaker, GERD, hypothyroidism, history of cholecystectomy, BPH, arthritis, presented with chief complaints of generalized weakness, cough, shortness of breath since last 6 days Vital signs -temperature 97.6, pulse 75, respiratory rate 18, blood pressure 120 /80, SPO2 95% on room air CXR -Fairly diffuse patchy opacities bilaterally. Findings are most suggestive of infiltrate versus somewhat atypical-appearing pulmonary edema. Echocardiogram 08/13/16 - LVEF-50%,MIld LAD,Mild LVH, Moderate MR,Right ventricular systolic pressure estimated at 42 mmHg. Pertinent labs-WBC 10.8, hemoglobin 11.1, hematocrit 33.6, creatinine - 1.9, CT scan of head (04/20/2017)-No acute intracranial hemorrhage or territorial infarction. Extensive chronic white matter disease and parenchymal volume loss, for which the possibility of a focal acute ischemic process cannot be conclusively ruled out. CT scan of head (04/21/2017)- No evidence of intracranial hemorrhage. An 9 mm oval focus of hypoattenuation in the left centrum semiovale may reflect an evolving lacunar infarct in this locale. Plan - Acute stroke According to the night team he had an episode of stroke in the night with weakness in right upper and the lower limb. On the CT scan does not show any evidence of acute stroke. But he still have clinical evidence of having stroke. We discussed about the compatibility of pacemaker. He has with MRI. It was advised that, [facility]-Dr. Crouch will put a magnet over his Pacemaker before MRI. We will do MRI of the brain and treat accordingly. We hold Xarelto to prevent a secondary bleeding in the stroke. We will hold lisinopril and Lasix and adding IV fluids 50 mL per hour for giving him permissive hypertension for next 24 hours. * We will continue aspirin 81 milligrams once a day * We'll continue high-dose statins * We placed a consult for Dr. Park and will follow his recommendation * We will follow MRI of the brain. Patient is not able to go through MRI of the brain because of the severe cough. We decided later on today. CT scan of the head to rule out any hemorrhage or increament in infarct or cerbral edema. Pneumonia due to secondary bacterial infection - * Flu test was negative * We will continue oxygen to keep SPO2 more than 92% * Please keep head end of the bed elevated * We will follow blood culture, respiratory culture. urine culture is growing gram-negative rods * Will continue inj ceftriaxone and azithromycin * The patient started having fever, then we will change antibiotic to Unasyn and take the blood culture * Strict intake output charting * we added tesslon perls and Guiaphenasin for cough * TRC/Neb Acute on chronic CHF * Troponin still trending up -0.22, 0.44, 0.9 in, 1.45, 1.72,1.92, 2.23,2.91 * Discussed with [facility] and they think demand ischemia. Chest x-ray showing ? Pulmonary edema * We'll follow serial troponins and EKGs till it trended down * We'll follow cardiology recommendation * Strict intake output charting * Patient recently had echocardiogram Urine tract infection * urine analysis-WBC 15-25, leukocyte esterase small, nitrite positive * Patient denies any active symptoms * Urine culture is growing gram-negative bacteria AF with controlled ventricular rate, coronary artery disease, hypertension, hypothyroidism * Withhold Xeralto because it can cause hemorrhagic transformation of infarct. * Other antihypertensive except metoprolol to have permissive hypertension Diet -heart healthy diet DVT prophylaxis -ALP S/Xarelto CODE status - DNR/DNI Problem List: 1. Stroke 2. Pneumonia 3. Atrial fibrillation with rapid ventricular response 4. Elevated troponin Pain Ratin Pain Location: not applicable Pain Goal: Remain pain free Pain Plan: mild to moderate Tomorrow's Labs & Rationales: cbc, bep, mag, - for follopw up sroke and infection DVT/Prophylaxis: mechanical, pharmacological
--- NOTE | 2017-04-21 08:27 | PN- Cardiology ---
Subjective Subjective: Telemetry reviewed. Sinus rhythm throughout. There is a suspicion that Mr. Fraser might have had a cerebrovascular accident since yesterday. He is awake and answers questions appropriately but seems somewhat drowsy, and might be depressed. He does not specify any particular complaints but claims to "feel lousy, feels like a vegetable" Objective Vital Signs and I&Os Vital Signs Date Time Temp Pulse Resp B/P B/P Pulse O2 O2 Flow FiO2 Mean Ox Delivery Rate 04/21 0645 98.9 73 20 150/82 95 Nasal 3.0L Cannula 04/21 0455 98.9 04/21 0356 100.0 04/21 0037 93 Nasal 3.0L Cannula 04/21 0021 99.6 71 20 128/72 90 Nasal 3.0L Cannula 04/21 0000 Nasal 3.0L Cannula 04/20 2112 78 152/78 04/20 1732 95 Nasal 2.0L Cannula 04/20 1611 97.9 65 20 130/70 91 04/20 0921 150/70 04/20 0920 150/70 04/20 0920 150/70 04/20 0826 95 Nasal 2.0L Cannula Intake & Output 04/21 1600 04/21 0800 04/21 0000 04/20 1600 04/20 0800 04/20 0000 Intake Total 100 480 400 150 490 Output Total 400 100 400 Balance 100 480 0 50 90 Intake, IV 100 0 250 Intake, Oral 0 480 400 150 240 Number 2 2 3 0 Bowel Movements Output, Urine 400 100 400 Patient 148 lb 148 lb Weight Weight Chair scale Chair scale Measurement Method Physical Exam: Gen. exam patient appeared somewhat drowsy but awake, answers questions appropriately although does not volunteer information and remains a poor historian. Head normocephalic atraumatic Eyes sclera anicteric conjunctiva showed no pallor extraocular muscles appeared normal Neck, carotid endarterectomy scar, no jugular venous distention no thyroid masses no palpable nodes Chest lungs appeared clear bilaterally Heart regular rhythm with a grade 1 to 2/6 systolic murmur Abdomen soft nontender no organomegaly bowel sounds normal Extremities no clubbing cyanosis or pedal edema Neurological no gross impairment of speech. Although right hand fashion supervisor appears normal right upper extremity might be somewhat weak. Moves all extremities however. Results Last 48 Hrs of Labs/Mics: Laboratory Tests 04/21/17 0318: Magnesium Cancelled 04/21/17 0300: Troponin I 2.23 *H, CBC w Diff NO MAN DIFF REQ, RBC 3.56 L, MCV 95.3 H, MCH 31.6 H, RDW 12.9, MPV 9.0, Gran % 93.3 H, Lymphocytes % 2.1 L, Monocytes % 4.5, Eosinophils % 0.1, Basophils % 0 L, Absolute Granulocytes 13.4 H, Absolute Lymphocytes 0.3 L, Absolute Monocytes 0.6, Absolute Eosinophils 0, Absolute Basophils 0, PUBS MCHC 33.2 04/20/17 2100: Anion Gap 14, Estimated GFR 36 L, BUN/Creatinine Ratio 17.2, Magnesium 2.0, Troponin I 1.92 *H 04/20/17 1515: Troponin I 1.72 *H 04/20/17 0900: Troponin I 1.45 *H 04/20/17 0300: Lactic Acid 1.9, Troponin I 0.99 *H 04/20/17 0300: Anion Gap 11, Estimated GFR 34 L, BUN/Creatinine Ratio 18.4, Magnesium 2.5 H, CBC w Diff NO MAN DIFF REQ, RBC 3.54 L, MCV 94.8 H, MCH 31.5 H, RDW 12.6, MPV 8.5, Gran % 85.5 H, Lymphocytes % 6.7 L, Monocytes % 5.9, Eosinophils % 1.6, Basophils % 0.3, Absolute Granulocytes 9.2 H, Absolute Lymphocytes 0.7 L, Absolute Monocytes 0.6, Absolute Eosinophils 0.2, Absolute Basophils 0, PUBS MCHC 33.2 04/19/17 2236: Lactic Acid Cancelled 04/19/17 2030: Troponin I 0.44 *H 04/19/17 2030: Lactic Acid 1.9 04/19/17 1723: Lactic Acid 1.2 04/19/17 1627: Urinalysis MOD H, Urine Color YEL, Urine Clarity CLDY H, Urine pH 6.0, Ur Specific [place] >= 1.030, Urine Protein 100 H, Urine Ketones NEG, Urine Nitrite POS H, Urine Bilirubin NEG, Urine Urobilinogen 0.2, Ur Leukocyte Esterase SMALL H, Ur Microscopic SEDIMENT EXAMINED, Urine RBC 1-3, Urine WBC 15 -25 H, Ur Epithelial Cells MOD H, Urine Bacteria PACKD H, Hyaline Casts 1-3 H, Granular Casts 5-10 H, Urine Mucus FEW, Urine Hemoglobin MOD H, Urine Glucose NEG 04/19/17 1529: Anion Gap 13, Estimated GFR 36 L, BUN/Creatinine Ratio 18.9, Glucose 99, Calcium 9.2, Total Bilirubin 1.2, AST 74 H, ALT 61, Alkaline Phosphatase 118, Troponin I 0.22 *H, Kom-G-Cnuolciwtyi Pept 7850 H, Total Protein 7.6, Albumin 3.7, Globulin 3.9, Albumin/Globulin Ratio 0.9 L, CBC w Diff MAN DIFF ORDERED, RBC 3.90 L, MCV 94.9 H, MCH 31.5 H, RDW 12.9, MPV 8.8, Gran % 91.5 H, Lymphocytes % 3.7 L, Monocytes % 4.4, Eosinophils % 0.3, Basophils % 0.1, Absolute Granulocytes 11.9 H, Segmented Neutrophils 92 H, Absolute Lymphocytes 0.5 L, Lymphocytes 4 L, Monocytes 3, Absolute Monocytes 0.6, Eosinophils 1, Absolute Eosinophils 0, Absolute Basophils 0, Platelet Estimate ADEQUATE, Normocytic RBCs VERIFIED, Polychromasia 1+, PUBS MCHC 33.2, Fld Total RBCs Counted 100 Microbiology 04/20 0300 NASOPHARYN: Influenza Virus A & B Rapid Smear - COMP Recent Imaging Studies: CT scan of the headIMPRESSION: No acute intracranial hemorrhage or territorial infarction. Extensive chronic white matter disease and parenchymal volume loss, for which the possibility of a focal acute ischemic process cannot be conclusively ruled out. Assessment/Plan Assessment/Plan In summary this 81-year-old gentleman has the following problems 1. Pneumonia with demand ischemia 2. Paroxysmal atrial fibrillation on chronic anticoagulation, history of prior atrial flutter ablation, also on amiodarone to maintain sinus rhythm 3. Chronic renal insufficiency 4. Coronary artery disease with prior PCI and cardiac catheterization September 2015 with no new obstructive disease 5. Peripheral vascular disease with prior CEA 6. History of permanent pacemaker 7. Pulmonary hypertension by echocardiogram 8. 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 The CT scan does not show this yet but small focal area of his of ischemia or infarction cannot be excluded. A he has underlying Parkinson's and intention tremors. I'm unconvinced by my clinical exam that there has been a major cerebrovascular accident and any subtle findings might reverse. Would suggest neurology evaluation. He is on appropriate dose anticoagulation for his level of renal insufficiency. Will check with pacemaker company if this is an MRI compatible lead and generator. I would also suggest a CT scan of the chest. This would help for multiple reasons #1 to differentiate pneumonia and congestive heart failure and evaluate extents of pneumonia, and evaluate lungs while on amiodarone. Continue telemetry? Yes
[2017-04-21 08:44] VITALS: BP 120/80
--- NOTE | 2017-04-21 11:25 | PN- Att Addend ---
Attending Addendum Attending Brief Note Laboratory Tests 04/21/17 0930: Troponin I 2.91 *H 04/21/17 0318: Magnesium Cancelled 04/21/17 0300: Troponin I 2.23 *H, CBC w Diff NO MAN DIFF REQ, RBC 3.56 L, MCV 95.3 H, MCH 31.6 H, RDW 12.9, MPV 9.0, Gran % 93.3 H, Lymphocytes % 2.1 L, Monocytes % 4.5, Eosinophils % 0.1, Basophils % 0 L, Absolute Granulocytes 13.4 H, Absolute Lymphocytes 0.3 L, Absolute Monocytes 0.6, Absolute Eosinophils 0, Absolute Basophils 0, PUBS MCHC 33.2 04/20/17 2100: Anion Gap 14, Estimated GFR 36 L, BUN/Creatinine Ratio 17.2, Magnesium 2.0, Troponin I 1.92 *H 04/20/17 1515: Troponin I 1.72 *H Vital Signs Date Time Temp Pulse Resp B/P B/P Pulse O2 O2 Flow FiO2 Mean Ox Delivery Rate 04/21 0844 97.6 75 18 120/80 95 Nasal 3.0L Cannula 04/21 0645 98.9 73 20 150/82 95 Nasal 3.0L Cannula 04/21 0455 98.9 04/21 0356 100.0 04/21 0037 93 Nasal 3.0L Cannula 04/21 0021 99.6 71 20 128/72 90 Nasal 3.0L Cannula 04/21 0000 Nasal 3.0L Cannula 04/20 2112 78 152/78 04/20 1732 95 Nasal 2.0L Cannula 04/20 1611 97.9 65 20 130/70 91 81-year-old male with past medical history of the atrial fibrillation on Xarelto and amiodarone, 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 Patient on chest x- ray was found to have bilateral patchy opacities suggestive of pneumonia. Overnight pt developed weakness of rt side along with confusion. CT head was negative. Pt likely has new stroke. Power Rt upper extremity 1/5, Lower extremity Rt side weakness also 1/5. Pt to go for MRI today. Neuro to see the patient. will hold off on xarelto for now to prevent hemorrhagic transformation. Community-acquired pneumonia with chest x-ray showing bilateral patchy opacities. Patient currently is on ceftriaxone and Zithromax we will continue with that. Type II myocardial infarction secondary to above-we will continue to trend the troponin . Going up. reviewed EKG this am, no changes. Seen by cardiology and we will follow-up with the recommendations. Hypoxic respiratory failure secondary to pneumonia-patient's oxygen saturation in ER was 87% on 2 L. Continue with supplemental oxygen therapy for now. Urinary tract infection-we will follow up on urine cultures and continue patient on ceftriaxone for now. Urine cultures growing gram negative rods.
--- NOTE | 2017-04-21 11:50 | ULTRASOUND REPORT ---
EXAMINATION: DUPLEX BILATERAL CAROTID ULTRASOUND CLINICAL INFORMATION: Right upper extremity weakness. COMPARISON: CTA of the neck 06/17/2010 TECHNIQUE: Duplex bilateral carotid US was performed using real-time ultrasound and Doppler techniques (integrating B-mode 2D vascular images, Doppler spectral analysis and color flow Doppler imaging). These techniques were utilized to interrogate the extracranial carotid and vertebral arteries bilaterally. The degree of stenosis is based off criteria similar to NASCET. FINDINGS: 1. On the right: Plaque is present at the carotid bifurcation but velocity measurements are normal and do not suggest a stenosis of greater than 50% diameter reduction in the right ICA. The vertebral artery is patent demonstrating antegrade flow. 2. On the left: Moderate amount of echogenic plaque is present at the carotid bifurcation but velocity measurements are normal and do not suggest a stenosis of greater than 50% diameter reduction in the left ICA. The vertebral artery is patent demonstrating antegrade flow. The external carotid arteries appear unremarkable. Subclavian artery waveforms are normal. IMPRESSION: Plaque is present in the internal carotid arteries, left greater than right, but velocity measurements are normal and there is no evidence to suggest a hemodynamically significant stenosis of greater than 50% diameter reduction.
--- NOTE | 2017-04-21 13:50 | PN- Student ---
DANIELLE FARR 04/21/17 1323: Subjective Subjective: History and Physical HPI: This is an 81-year-old male with a past medical history of vertigo, left carotid endarterectomy, paroxysmal atrial fibrillation, HTN, hyperlipidemia, mitral regurgitation, cardiomyopathy s/p permanent pacemaker, GERD, hypothyroidism, cholecystectomy, BPH, arthritis presents to [facility] emergency department with a chief complaint of cough and shortness of breath for the past week. Patient reports having the flu on April [address] Richardson who advised him to received a chest x-ray for which he was non-compliant. On the day before admission, he was very weak and felt "lousy overall". During the social work specialist when he was trying to get off the toilet, patient lost his balance and fell down. On ED admission, patient is complaining of cough with little sputum, shortness of breath on exertion and weakness. Otherwise denies fever, chest pain, palpitations, nausea, vomiting, numbness, tingling. Past Medical History: vertigo, left carotid endarterectomy, paroxysmal atrial fibrillation, HTN, hyperlipidemia, mitral regurgitation, cardiomyopathy s/p permanent pacemaker (LVEF low-normal), GERD, hypothyroidism, cholecystectomy, BPH, arthritis Past social history: Patient lives at home with his and is currently retired. He does not have a living will. He also denies alcohol or illicit drug use. Patient is able to ambulate independently and does not use a cane or walker. Past family history: Patient's father due to myocardial infarction in his 40s. He had a history of coronary artery disease. Patient's brother and sister both have a history of coronary artery disease. Past surgical history: Left sided pacemaker Allergies: amoxicillin (Severe, HIVES 02/02/16) Home medication list: Amiodarone HCl 200 MG TABLET 1 TAB PO DAILY A FIB Atorvastatin Calcium 20 MG TABLET 1 TAB PO QPM CHOLESTEROL Finasteride 5 MG TABLET 1 TAB PO DAILY PROSTATE Furosemide 20 MG TABLET 2 TAB PO DAILY DIURETIC Levothyroxine Sodium 100 MCG TABLET 1 TAB PO DAILY AC THYROID Lisinopril (Prinivil) 10 MG TABLET 1 TAB PO DAILY BP Metoprolol Succinate 200 MG TAB.ER.24H 1 TAB PO QPM HEART/BLOOD Pantoprazole Sodium 40 MG TABLET.DR 1 TAB PO QAM GI Primidone 50 MG TABLET 2 TAB PO QHS TREMORS Rivaroxaban (Xarelto) 15 MG TABLET 1 TAB PO QPM BLOOD THINNER Tamsulosin HCl 0.4 MG CAP.ER.24H 1 CAP PO QHS PROSTATE Vital Signs Date Time Temp Pulse Resp B/P B/P Pulse O2 O2 Flow FiO2 Mean Ox Delivery Rate 04/21 0844 97.6 75 18 120/80 95 Nasal 3.0L Cannula 04/21 0800 95 Nasal 3.0L Cannula / 0645 98.9 73 20 150/82 95 Nasal 3.0L Cannula / 0455 98.9 04/21 0356 100.0 /08 0037 93 Nasal 3.0L Cannula / 0021 99.6 71 20 128/72 90 Nasal 3.0L Cannula 04/21 0000 Nasal 3.0L Cannula 04/20 2112 78 152/78 04/20 1732 95 Nasal 2.0L Cannula 04/20 1611 97.9 65 20 130/70 91 Pertinent labs-hemoglobin 12.3, WBC 13, MCV 94.9, granulocytes 91.5, BUN 34, creatinine 1.8 (*baseline creatinine is 1), GFR 36, urine analysis-WBC 15-25, leukocyte esterase small, nitrite positive CXR -Fairly diffuse patchy opacities bilaterally. Findings are most suggestive of infiltrate versus somewhat atypical-appearing pulmonary edema. Echocardiogram 08/13/16 - LVEF-50%,MIld LAD,Mild LVH, Moderate MR,Right ventricular systolic pressure estimated at 42 mmHg. Assessment/Plan: This is an 81-year-old male with a past medical history of vertigo, left carotid endarterectomy, paroxysmal atrial fibrillation, HTN, hyperlipidemia, mitral regurgitation, cardiomyopathy s/p permanent pacemaker, GERD, hypothyroidism, cholecystectomy, BPH, arthritis presents to [facility] emergency department with a chief complaint of cough and shortness of breath for the past week. Pneumonia due to secondary bacterial infection: Patient admitted to telemetry floor -Oxygen via nasal canula to keep SPO2 more than 92% -Start patient on IV Ceftriaxone/Azithromycin -Send for blood and sputum culture -monitor I/O Acute on chronic congestive heart failure: Patient's troponins were 0.22 on admission. -Rule out ACS. Chest X-ray shows questionable pulmonary edema -continue following serial troponins and EKGs -Cardiology consult in the AM -Last echo was in 2015 Urinary tract infection -Urinary analysis shows WBC in the 15-25 range, leukocyte esterase low, nitrite positive -Patient denies any painful urination -Follow up with urine cultures Atrial fibrillation with controlled ventricular rate, CAD, HTN, hypothyroid -patient is on Xeralto for anti-coagulation. Continue this home med as well as metoprolol, lisinopril, furosemide, levothyroxine DVT PPx-Xarelto Code status- DNR/DNI
--- NOTE | 2017-04-21 14:07 | RADIOLOGY REPORT ---
EXAMINATION: XR PORTABLE CHEST CLINICAL INFORMATION: Cough, short of breath. COMPARISON: 04/19/2017. TECHNIQUE: Portable frontal view of the chest was obtained. FINDINGS: Overall opacity in the lungs bilaterally appears somewhat improved most notably in the left lower lung field, Evolving more focal opacity in the upper lobe laterally has more the appearance of infiltrate on today's exam and may represent an evolving pneumonia. Continued follow-up is recommended. IMPRESSION: Findings are most suggestive of some improving pulmonary edema with underlying residual infiltrate suggested in the right upper lobe.
--- NOTE | 2017-04-21 14:42 | Cons- Neurology ---
General Information and HPI Consulting Request Date of Consult: 04/21/17 Requested By: MELLY EDWARDS,AMEE Loja History of Present Illness: 81-year-old male initially admitted 04/19 for diffuse weakness and feeling ill. There was one instance of fall. He'll also complained of headache and diarrhea. There is no history of fever. Last evening he was noted to have weakness of right upper extremity and essentially he stopped speaking. A stroke called was made. However he was not a candidate for TPA as he had received Xarelto. As per records however it was not clear that the event was that precipitous with that symptoms had started sometime earlier that day. A CT of the brain with did not show any evidence of acute hemorrhage or infarction Allergies/Medications Allergies: Coded Allergies: amoxicillin (Severe, HIVES 02/02/16) Home Med List: Amiodarone HCl 200 MG TABLET 1 TAB PO DAILY A FIB PLEASE START TAKING 08/21 ONWARDS PRIOR TO THAT TAKE THE 400 MG TABLET PRESCRIBED Atorvastatin Calcium 20 MG TABLET 1 TAB PO QPM CHOLESTEROL (Reported) Finasteride 5 MG TABLET 1 TAB PO DAILY PROSTATE (Reported) Furosemide 20 MG TABLET 2 TAB PO DAILY DIURETIC (Reported) Levothyroxine Sodium 100 MCG TABLET 1 TAB PO DAILY AC THYROID (Reported) Lisinopril (Prinivil) 10 MG TABLET 1 TAB PO DAILY BP (Reported) Metoprolol Succinate 200 MG TAB.ER.24H 1 TAB PO QPM HEART/BLOOD (Reported) Pantoprazole Sodium 40 MG TABLET.DR 1 TAB PO QAM GI (Reported) Reason to Stop at ADM: on omeprazole in the hospital Primidone 50 MG TABLET 2 TAB PO QHS TREMORS (Reported) Rivaroxaban (Xarelto) 15 MG TABLET 1 TAB PO QPM BLOOD THINNER (Reported) Tamsulosin HCl 0.4 MG CAP.ER.24H 1 CAP PO QHS PROSTATE (Reported) Current Medications: Current Medications Sig/Andie Start time Last Medication Dose Route Stop Time Status Admin Acetaminophen 1,000 MG ONCE ONE 04/21 0345 DC 04/21 N/A 1 UNIT IV 04/21 035 0356 Acetaminophen 650 MG Q6P PRN 04/19 1930 AC PO Amiodarone HCl 200 MG DAILY 04/19 1913 AC 04/20 PO 0920 Aspirin 81 MG DAILY 04/21 1000 AC PO Atorvastatin Calcium 80 MG 1700 04/20 2245 AC 04/20 PO 2239 Atorvastatin Calcium 80 MG QPM 04/20 2200 DC PO Atorvastatin Calcium 20 MG QPM 04/19 2200 DC 04/20 PO 2110 Azithromycin 500 MG DAILY@1800 04/20 1800 AC 04/20 Sodium Chloride 250 ML IV 1541 Benzonatate 100 MG TID 04/20 1000 AC 04/20 PO 2110 Ceftriaxone Sodium 1,000 MG DAILY@1800 / 1800 AC 04/20 IV 1540 Finasteride 5 MG DAILY 04/19 1913 AC 04/20 PO 0920 Furosemide 40 MG DAILY 04/20 1000 DC 04/20 PO 0920 Guaifenesin/Codeine 10 ML Q6P PRN 04/21 1245 AC 04/21 Phosphate PO 1331 Guaifenesin/ 10 ML TID 04/20 1000 AC 04/20 Dextromethorphan PO 2110 Levothyroxine Sodium 0.1 MG DAILY AC 04/20 0700 AC 04/20 PO 0619 Lisinopril 10 MG DAILY 04/20 1000 DC 04/20 PO 0920 Metoprolol Succinate 200 MG DAILY 04/20 1000 AC 04/20 PO 0921 Oxycodone HCl 10 MG Q6P PRN 04/19 1930 AC PO Patient Medication 1 ED .STK-MED ONE 04/21 1313 DC Teaching ED 04/21 1314 Potassium Chloride 40 MEQ ONCE ONE 04/20 1600 DC 04/20 PO 04/20 1601 1935 Primidone 100 MG AT BEDTIME 04/19 2200 AC 04/20 PO 2110 Rivaroxaban 15 MG QPM 04/19 2200 DC 04/20 PO 2111 Sodium Chloride 1,000 ML Q13H 04/21 1130 DC IV Tamsulosin HCl 0.4 MG AT BEDTIME 04/19 2200 AC 04/20 PO 2112 Review of Systems Review of Systems: Patient is extremely lethargic, not speaking, and unable to give a history or review of systems Past History Travel History Traveled to [place] past 21 day No Medical History Neurological: vertigo, left endarterectomy EENT: CATARACTS REMOVED EAGLE Cardiovascular: AFIB, aflutter, cardiomyopathy, hypertension, hyperlipidemia, mitral regurgitation, paroxysmal atrial fibrillation mild cardiomyopathy (LVEF low normal) Respiratory: mild restrictive disease Gastrointestinal: GERD Hepatic: CHOLECYSTECTOMY Renal: benign prost hyperplasia Musculoskeletal: ARTHRITIS Endocrine: hypothyroidism Other Medical Hx: BPH, lt. carotid artery disease Surgical History Surgical History: LEFT SIDED PACEMAKER Family History Relations & Conditions If Any: FATHER, , Age 40-50; Cause: Myocardial infarct. FH: CAD (coronary artery disease) BROTHER FH: CAD (coronary artery disease) SISTER FH: CAD (coronary artery disease) Psychosocial History Who Do You Live With? spouse Services at Home: None Primary Language: Tam[place] Smoking Status: Former Smoker ETOH Use: denies use Living Will? no Functional Ability ADLs Independent: dressing, eating, toileting, bathing. Ambulation: independent IADLs Independent: shopping, housework, finances, food prep, telephone, transportation , medication admin. Exam & Diagnostic Data Vital Signs and I&O Vital Signs Date Time Temp Pulse Resp B/P B/P Pulse O2 O2 Flow FiO2 Mean Ox Delivery Rate 04/21 0844 97.6 75 18 120/80 95 Nasal 3.0L Cannula 04/21 0800 95 Nasal 3.0L Cannula 04/21 0645 98.9 73 20 150/82 95 Nasal 3.0L Cannula 04/21 0455 98.9 04/21 0356 100.0 04/21 0037 93 Nasal 3.0L Cannula 04/21 0021 99.6 71 20 128/72 90 Nasal 3.0L Cannula 04/21 0000 Nasal 3.0L Cannula 04/20 2112 78 152/78 04/20 1732 95 Nasal 2.0L Cannula 04/20 1611 97.9 65 20 130/70 91 Intake & Output 08 1600 /08 0800 08 0000 Intake Total 100 480 Output Total Balance 100 480 Intake, IV 100 Intake, Oral 0 480 Number 2 2 Bowel Movements CAROTID U/S IMPRESSION: Plaque is present in the internal carotid arteries, left greater than right, but velocity measurements are normal and there is no evidence to suggest a hemodynamically significant stenosis of greater than 50% diameter reduction. ct brain IMPRESSION: No acute intracranial hemorrhage or territorial infarction. Extensive chronic white matter disease and parenchymal volume loss, for which the possibility of a focal acute ischemic process cannot be conclusively ruled out. Physical Exam: Extremely lethargic, briefly arousable No speech Not following commands Heart sounds normal no carotid bruits, distal pulses intact Pupils equal and reactive, fundi not able to examine, visual celeste cannot assess, although right facial weakness, extraocular movements full, cannot assess facial sensation or hearing, palate appears midline, hearing not able to assess Mild increase in tone left upper extremity and lower extremities, hypotonic right upper extremity with no movement Movements left lower extremity greater than right Deep tendon reflexes 1+ left absent right upper extremity Plantar response mute bilaterally Coordinative functions cannot assess, Assessment/Plan Assessment: Cerebrovascular accident, left middle cerebral, likely large and probably embolic Recommendations: Repeat CT in 24 hours to assess for cerebral edema Patient unable to swallow at this time; all medications should be IV DVT prophylaxis; resume anticoagulants in the near future dependent on patient's status and size of stroke Physical and speech therapies should patient awake Consult Acknowledgment - Thank you for your consult request.
--- NOTE | 2017-04-21 16:28 | CT SCAN REPORT ---
EXAMINATION: CT HEAD WITHOUT CONTRAST CLINICAL INFORMATION: TIA/stroke. COMPARISON: 04/20/2017 TECHNIQUE: Contiguous axial imaging was performed from the skull base to vertex without intravenous administration of contrast. DLP: 621 mGy-cm FINDINGS: There is no hemorrhage, mass effect, shift of the normally midline structures, or extra-axial collection. There is a 9 mm oval focus of hypoattenuation in the high left frontal centrum semiovale (series 2 image 48) which may reflect an evolving lacunar infarct. There is moderate hypoattenuation within the bihemispheric white matter compatible with chronic microangiopathy and moderate generalized volume loss, both of which are similar to the prior studies. No acute osseous abnormalities. The visualized paranasal sinuses, mastoid air cells and middle ear cavities are clear. The temporal mandibular joints articulate normally with some degenerative change. No acute soft tissue abnormalities. There have been bilateral ocular lens extractions. It Infrastructure Manager image demonstrates mild multilevel cervical spondylosis and some surgical clips in the neck. IMPRESSION: No evidence of intracranial hemorrhage. An 9 mm oval focus of hypoattenuation in the left centrum semiovale may reflect an evolving lacunar infarct in this locale. Moderate chronic microangiopathy and volume loss.
[2017-04-21 18:09] VITALS: BP 154/78
[2017-04-21 23:22] VITALS: BP 148/86
--- NOTE | 2017-04-22 03:06 | NUR ---
LATE ENTRY CRITICAL VALUE TROP- 3.59. MD YAN MADE AWARE. TROP RECHECKED AT 0200. DENIES PAIN. VSS.
--- NOTE | 2017-04-22 03:28 | NUR ---
CRITICAL VALUE TROP- 4.04. PT DENIES CHEST PAIN. MD YAN AWARE. NEST TROP AND EKG 0800.
--- NOTE | 2017-04-22 07:41 | NUR ---
Physical therapy: Orders for PT eval and treat received. Chart reviewed. Troponin elevated and trending up. Will cancel PT for today and follow up as appropriate. Thank you.
--- NOTE | 2017-04-22 07:55 | PN- Housestaff ---
Subjective Follow-up For: f/u Stroke f/u CAP f/u UTI Complaints: no complaints Subjective: pt is seen and examined at the bed side. He was responding to verbal command by saying yes or no, otherwise he feels drowsy and not producing out any sentences. he is having fever. He has some movements in the right legs. Review of Systems Constitutional: Denies: no symptoms. Comments: cannt comments because of patients clinical status. Objective Last 24 Hrs of Vital Signs/I&O Vital Signs Date Time Temp Pulse Resp B/P B/P Pulse O2 O2 Flow FiO2 Mean Ox Delivery Rate 04/22 0000 Nasal 4.0L Cannula 04/21 2322 98.0 84 18 148/86 94 Nasal 4.0L Cannula 04/21 2159 83 148/84 04/21 1809 99.2 74 18 154/78 100 / 1450 94 Nasal 4.0L Cannula 04/21 0844 97.6 75 18 120/80 95 Nasal 3.0L Cannula Intake & Output 04/22 1600 04/22 0800 04/22 0000 Intake Total 400 Output Total Balance 400 Intake, IV 400 Patient 68.096 kg Weight Weight Joy Lift Measurement Method Physical Exam General Appearance: No Acute Distress Cardiovascular: Normal S1, Normal S2 Lungs: Clear to Auscultation, Normal Air Movement Abdomen: Soft, No Tenderness Neurological: patient is drowsy, although responds to verbal commands by nodding head, he opens his eyes. he is not able for form complete sentences., bilateral planter is extensor, right upper limb 0/5 right lower limb - 1/5 Extremities: No Clubbing, No Cyanosis, No Edema Vascular: Normal Pulses, Pulses Symmetrical Current Medications: Current Medications Sig/Andie Start time Last Medication Dose Route Stop Time Status Admin Acetaminophen 650 MG Q6P PRN 04/19 1930 AC PO Amiodarone HCl 200 MG DAILY 04/19 1913 AC 04/20 PO 0920 Aspirin 81 MG DAILY 04/21 1000 AC PO Atorvastatin Calcium 80 MG 1700 04/20 2245 AC 04/20 PO 2239 Azithromycin 500 MG DAILY@04/20 1800 AC 04/21 Sodium Chloride 250 ML IV 1826 Benzonatate 100 MG TID 04/20 1000 AC 04/20 PO 211 Ceftriaxone Sodium 1,000 MG DAILY@1800 04/20 1800 AC 04/21 IV 1826 Dextrose/Sodium 1,000 ML Q20H 04/21 1600 AC 04/21 Chloride IV 1700 Finasteride 5 MG DAILY 04/19 1913 AC 04/20 PO 0920 Furosemide 40 MG DAILY 04/20 1000 DC 04/20 PO 0920 Guaifenesin/Codeine 10 ML Q6P PRN 04/21 1245 AC 04/21 Phosphate PO 1331 Guaifenesin/ 10 ML TID 04/20 1000 AC 04/20 Dextromethorphan PO 2110 Levothyroxine Sodium 0.1 MG DAILY AC 04/20 0700 AC 04/20 PO 0619 Lisinopril 10 MG DAILY 04/20 1000 DC 04/20 PO 0920 Metoprolol Succinate 200 MG DAILY 04/20 1000 AC 04/20 PO 0921 Oxycodone HCl 10 MG Q6P PRN 04/19 1930 AC PO Patient Medication 1 ED .STK-MED ONE 04/21 1313 VT Teaching ED 04/21 1314 Primidone 100 MG AT BEDTIME 04/19 2200 AC 04/20 PO 2110 Rivaroxaban 15 MG QPM 04/19 2200 DC 04/20 PO 2111 Sodium Chloride 1,000 ML Q13H 04/21 1130 DC IV Tamsulosin HCl 0.4 MG AT BEDTIME 04/19 2200 AC 04/20 PO 2112 Last 24 Hrs of Lab/Jonathon Results Last 24 Hrs of Labs/Mics: Laboratory Tests 04/22/17 0215: Troponin I 4.04 *H 04/21/17 2055: Troponin I 3.59 *H 04/21/17 1650: Troponin I 2.88 *H 04/21/17 0930: Troponin I 2.91 *H Microbiology 04/21 930 BLOOD: Blood Culture - RECD Assessment/Plan Assessment: Patient is a 81-year-old male with significant past medical history of vertigo, history of left endarterectomy, paroxysmal atrial fibrillation, hypertension, hyperlipidemia, MR, cardiomyopathy s/p pacemaker, GERD, hypothyroidism, history of cholecystectomy, BPH, arthritis, presented with chief complaints of generalized weakness, cough, shortness of breath since last 6 days Vital signs -temperature 100.4, pulse 86, respiratory rate 20, blood pressure 150/80, SPO2 92% on room CXR -Fairly diffuse patchy opacities bilaterally. Findings are most suggestive of infiltrate versus somewhat atypical-appearing pulmonary edema. Echocardiogram 08/13/16 - LVEF-50%,MIld LAD,Mild LVH, Moderate MR,Right ventricular systolic pressure estimated at 42 mmHg. Pertinent labs-WBC 13.7, granulocytes 94.3,hemoglobin 11.1, hematocrit 32.6, creatinine - 1.5, CT scan of head (04/20/2017)-No acute intracranial hemorrhage or territorial infarction. Extensive chronic white matter disease and parenchymal volume loss, for which the possibility of a focal acute ischemic process cannot be conclusively ruled out. CT scan of head (04/21/2017)- No evidence of intracranial hemorrhage. An 9 mm oval focus of hypoattenuation in the left centrum semiovale may reflect an evolving lacunar infarct in this locale. Plan - Acute stroke According to the night team he had an episode of stroke on the 04/21/2017 with weakness in right upper and the lower limb. On the CT scan does not show any evidence of acute stroke. But he still have clinical evidence of having stroke.He had not had MRI due to cough and movements. We repeated CT head and found he had infarct in left MCA territory,in the left centrum semiovale.We hold Xarelto to prevent a secondary bleeding in the stroke till 04/22/2017 and will restart on 04/23/2017. We will hold lisinopril and Lasix and adding IV fluids 50 mL per hour for giving him permissive hypertension for next 24 hours. * We will continue aspirin -rectal suppository * We'll continue high-dose statins after NG tube placement, * Despite of nursing trial for 3 or 4 times, we will not able to put NG tube in place. We will discuss it tmr with attending and if needed than place GI consult. * Discussed with Dr. Hull over the fall. He thinks he can start heparin with target of PTT between 70-90. He told that when patient started taking orally or patient have G-tube we can start him on Xarelto, and will stop heparin. Pneumonia due to secondary bacterial infection - * Patient started having fever and chest x-ray were showing infiltrate in the right upper lobe. Patient is having allergy with amoxicillin, so we continued ceftriaxone and started him on metronidazole. We stopped azithromycin. * Flu test, urine for Legionella and pneumococcal antigen was negative * We will continue oxygen to keep SPO2 more than 92% * Please keep head end of the bed elevated * Urine culture is growing gram-negative rods -Escherichia coli. Blood culture is not showing any growth. * Strict intake output charting -patient is incontinent, had 2 wet diapers today. * TRC/Neb Acute on chronic CHF * Troponin trending down -0.22, 0.44, 0.9 in, 1.45, 1.72,1.92, 2.23,2.91, 3.59, 4.04, 3.97. * Discussed with owner and they think demand ischemia. Chest x-ray showing ? Pulmonary edema. * We will follow echocardiogram * We'll follow cardiology recommendation * Strict intake output charting Urine tract infection * urine analysis-WBC 15-25, leukocyte esterase small, nitrite positive * Patient denies any active symptoms * Urine culture is growing gram-negative bacteria AF with controlled ventricular rate, coronary artery disease, hypertension, hypothyroidism * Withhold Xeralto because it can cause hemorrhagic transformation of infarct. * Other antihypertensive except metoprolol to have permissive hypertension * We will discuss with the neurologist for restarting patient on Xarelto/heparin Diet -NPO, discuss with the family in the detail. I want the NG tube placement, they are ready for it. We placed a consult for nutrition and placed the order for NG tube. We will also discuss about the PEG tube placement in near future with the family. DVT prophylaxis -ALP S CODE status - DNR/DNI Problem List: 1. Stroke 2. Elevated troponin 3. Pneumonia Pain Ratin Pain Location: not applicable Pain Goal: Remain pain free Pain Plan: avoid oral medication Tomorrow's Labs & Rationales: cbc, bep - f/u
--- NOTE | 2017-04-22 08:06 | NUR ---
OCCUPATIONAL THERAPY NOTE: OT CONSULT RECEIVED AND CHART REVIEWED. PT WITH ELEVATED TROPONS TRENDING UP FROM 3.59 TO 4.04 TODAY. OT EVALUATION CANCELLED TODAY. OT WILL F/U WHEN MEDICALLY APPROPRIATE. THANK YOU.
[2017-04-22 09:05] LABS: ABSOLUTE BASOPHIL COUNT 0 /CUMM (0.0-0.2); ABSOLUTE EOSINOPHIL COUNT 0 /CUMM (0.0-0.7); ABSOLUTE GRANULOCYTE CT 12.9 /CUMM (1.4-6.5); ABSOLUTE LYMPH COUNT 0.3 /CUMM (1.2-3.4); ABSOLUTE MONOCYTE COUNT 0.5 /CUMM (0.10-0.60); BASOPHIL % 0 % (0.0-2.0); EOSINOPHIL % 0.1 % (0-5); HEMATOCRIT 32.6 % (42-52); MEAN CORPUSCULAR HGB 31.4 PG (27.0-31.0); MEAN CORPUSCULAR HGB CONC 33.2 G/DL (33.0-37.0); MEAN CORPUSCULAR VOLUME 94.7 FL (80.0-94.0); MEAN PLATELET VOLUME 8.9 FL (7.4-10.4); PLATELET COUNT 136 /CUMM (130-400); RBC DISTRIBUTION WIDTH 12.8 % (11.5-14.5); RED BLOOD CELL CT 3.44 /CUMM (4.70-6.10); WHITE BLOOD CELL COUNT 13.7 /CUMM (4.8-10.8)
[2017-04-22 09:29] LABS: GRANULOCYTE % 94.3 % (42.2-75.2)
[2017-04-22 10:00] VITALS: BP 150/80
--- NOTE | 2017-04-22 10:03 | PN- Cardiology ---
Subjective Subjective: Patient lethargic and only intermittently responsive. Not easily following commands. Does not appear to be in obvious distress. Objective Vital Signs and I&Os Vital Signs Date Time Temp Pulse Resp B/P B/P Pulse O2 O2 Flow FiO2 Mean Ox Delivery Rate 04/22 0000 Nasal 4.0L Cannula 04/21 2322 98.0 84 18 148/86 94 Nasal 4.0L Cannula 04/21 2159 83 148/84 04/21 1809 99.2 74 18 154/78 100 04/21 1450 94 Nasal 4.0L Cannula Intake & Output 04/22 1600 04/22 0800 04/22 0000 04/21 1600 04/21 0800 04/21 0000 Intake Total 400 0 100 480 Output Total Balance 400 0 100 480 Intake, IV 400 100 Intake, Oral 0 0 480 Number 1 2 2 Bowel Movements Patient 150 lb 148 lb Weight Weight Joy Lift Measurement Method Physical Exam: General: Lethargic Eyes: No obvious scleral icterus. HEENT: No jugular venous distention or abnormal jugular venous pulsations. Cardiovascular: Normal intensity S1/S2. Regular. Pacemaker noted. Respiratory: Mildly decreased air entry without rales Abdomen: Soft, nontender with no guarding or rebound tenderness. Musculoskeletal: No clubbing or cyanosis noted, no edema Skin: Warm Neurologic: Not easily following commands Current Medications: Current Medications Sig/Andie Start time Last Medication Dose Route Stop Time Status Admin Acetaminophen 650 MG ONCE ONE 04/22 930 DC IA 04/22 931 Acetaminophen 120 MG ONCE ONE 04/22 915 CAN IA 04/22 916 Acetaminophen 650 MG Q6P PRN 04/19 1930 AC PO Amiodarone HCl 200 MG DAILY 04/19 1913 AC 04/20 PO 0920 Aspirin 300 MG DAILY 04/22 1000 AC IA Aspirin 81 MG DAILY 04/21 1000 DC PO Atorvastatin Calcium 80 MG 1700 04/20 2245 DC 04/20 PO 2239 Azithromycin 500 MG DAILY@1800 04/20 1800 DC 04/21 Sodium Chloride 250 ML IV 1826 Benzonatate 100 MG TID 04/20 1000 DC 04/20 PO 2110 Ceftriaxone Sodium 1,000 MG DAILY@1800 04/20 1800 AC 04/21 IV 1826 Dextrose/Sodium 1,000 ML Q20H 04/21 1600 AC 04/21 Chloride IV 1700 Finasteride 5 MG DAILY 04/19 1913 AC 04/20 PO 0920 Furosemide 40 MG DAILY 04/20 1000 DC 04/20 PO 0920 Guaifenesin/Codeine 10 ML Q6P PRN 04/21 1245 DC 04/21 Phosphate PO 1331 Guaifenesin/ 10 ML TID 04/20 1000 DC 04/20 Dextromethorphan PO 2110 Levothyroxine Sodium 0.1 MG DAILY AC 04/20 0700 AC 04/20 PO 0619 Lisinopril 10 MG DAILY 04/20 1000 DC 04/20 PO 0920 Metoprolol Succinate 200 MG DAILY 04/20 1000 AC 04/20 PO 0921 Metronidazole 500 MG IQ8 04/22 0945 AC N/A 1 UNIT IV Oxycodone HCl 10 MG Q6P PRN 04/19 1930 AC PO Patient Medication 1 ED .STK-MED ONE 04/21 1313 HI Teaching ED 04/21 1314 Primidone 100 MG AT BEDTIME 04/19 2200 AC 04/20 PO 2110 Rivaroxaban 15 MG QPM 04/19 2200 DC 04/20 PO 2111 Sodium Chloride 1,000 ML Q13H 04/21 1130 DC IV Tamsulosin HCl 0.4 MG AT BEDTIME 04/19 2200 AC 04/20 PO 2112 Results Last 48 Hrs of Labs/Mics: Laboratory Tests 04/22/17 0815: Sodium Cancelled, Potassium Cancelled, Chloride Cancelled, Carbon Dioxide Cancelled, Anion Gap Cancelled, BUN Cancelled, Creatinine Cancelled, BUN/ Creatinine Ratio Cancelled, Magnesium Cancelled 04/22/17 0815: Anion Gap 10, Estimated GFR 45 L, BUN/Creatinine Ratio 21.3, Magnesium 1.9, Troponin I 3.97 *H, CBC w Diff NO MAN DIFF REQ, RBC 3.44 L, MCV 94.7 H, MCH 31.4 H, RDW 12.8, MPV 8.9, Gran % 94.3 H, Lymphocytes % 2.1 L, Monocytes % 3.5, Eosinophils % 0.1, Basophils % 0 L, Absolute Granulocytes 12.9 H, Absolute Lymphocytes 0.3 L, Absolute Monocytes 0.5, Absolute Eosinophils 0, Absolute Basophils 0, PUBS MCHC 33.2 04/22/17 0215: Troponin I 4.04 *H 04/21/17 2055: Troponin I 3.59 *H 04/21/17 1650: Troponin I 2.88 *H 04/21/17 0930: Troponin I 2.91 *H 04/21/17 0318: Magnesium Cancelled 04/21/17 0300: Troponin I 2.23 *H, CBC w Diff NO MAN DIFF REQ, RBC 3.56 L, MCV 95.3 H, MCH 31.6 H, RDW 12.9, MPV 9.0, Gran % 93.3 H, Lymphocytes % 2.1 L, Monocytes % 4.5, Eosinophils % 0.1, Basophils % 0 L, Absolute Granulocytes 13.4 H, Absolute Lymphocytes 0.3 L, Absolute Monocytes 0.6, Absolute Eosinophils 0, Absolute Basophils 0, PUBS MCHC 33.2 04/20/17 2100: Anion Gap 14, Estimated GFR 36 L, BUN/Creatinine Ratio 17.2, Magnesium 2.0, Troponin I 1.92 *H 04/20/17 1515: Troponin I 1.72 *H Microbiology 04/20 1300 STOOL: Clostridium difficile Toxin A & B - COMP Recent Imaging Studies: Telemetry tracings were personally reviewed and shows sinus rhythm CXR IMPRESSION: Findings are most suggestive of some improving pulmonary edema with underlying residual infiltrate suggested in the right upper lobe. Head CT IMPRESSION: No evidence of intracranial hemorrhage. An 9 mm oval focus of hypoattenuation in the left centrum semiovale may reflect an evolving lacunar infarct in this locale. Moderate chronic microangiopathy and volume loss. Carotid doppler: IMPRESSION: Plaque is present in the internal carotid arteries, left greater than right, but velocity measurements are normal and there is no evidence to suggest a hemodynamically significant stenosis of greater than 50% diameter reduction. Assessment/Plan Assessment/Plan 1. Pneumonia with demand ischemia 2. Paroxysmal atrial fibrillation on chronic anticoagulation, history of prior atrial flutter ablation 3. Chronic renal insufficiency 4. Coronary artery disease with prior PCI and cardiac catheterization September 2015 with no new obstructive disease 5. Peripheral vascular disease with prior CEA 6. History of permanent pacemaker, MRI compatible device 7. Pulmonary hypertension by echocardiogram 8. 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 Acute CVA 04/21/2017 Patient is status post acute CVA. Resume anticoagulation when cleared by neurology, if unable to take oral anticoagulation intravenous heparin should be considered. Despite recent outpatient echocardiogram I would recommend obtaining a repeat echocardiogram given the acute CVA. Antibiotics per the medical team. Carotid ultrasound did not reveal high-level stenosis. Remains euvolemic on physical exam. If the patient would benefit from MRI per neurology, his pacemaker is MRI compatible. Noe Vega MD [facility] Continue telemetry? Yes
--- NOTE | 2017-04-22 13:56 | Discharge Summary ---
Visit Information Visit Dates Admission Date: 04/19/17 Hospital Course Course Attending Physician: AMEE PICKARD MD Primary Care Physician: EVI EDWARDS,[facility] Course: Patient is 81-year-old gentleman with past medical history significant for paroxysmal atrial fibrillation status post ablation, CAD s/p PCI and stents in September 2015, cardiomyopathy, peripheral vascular disease, history of left- sided carotid endarterectomy, hypothyroidism, HTN, HLD, presented to the ED for further evaluation of worsening fatigue, weakness and persistent cough from couple of weeks. ED course: vital signs on admission were temperature 98.4 later on he spiked fever of 101.1 , pulse 102, respiratory rate 26, blood pressure 180/69 and he was saturating 87 % on room air later on he was saturating 97% on 2 L nasal cannula. Pertinent labs and imaging studies. WBC count 13.0, hemoglobin 12.3, hematocrit 37.0, platelet count 144, Sodium 136, potassium 4.7, BUN/creatinine 34, creatinine 1.8, troponin 0.22, proBNP 7850 Chest x-ray showed Fairly diffuse patchy opacities bilaterally. Findings are most suggestive of infiltrate versus somewhat atypical-appearing pulmonary edema. EKG done showed normal sinus rhythm with no ST-T wave changes Patient was admitted to telemetry floor for the following problems: 1.Community-acquired pneumonia: Patient was started on IV ceftriaxone and azithromycin after sending the cultures Allergies: Coded Allergies: amoxicillin (Severe, HIVES 02/02/16) Discharge Instructions Medications at Discharge Discharge Medications: Continue taking these medications: Pantoprazole Sodium (Pantoprazole Sodium) 40 MG TABLET.DR 1 Tablet ORAL Every Morning Instructions: Reason to Stop at ADM: on omeprazole in the hospital Comments: NOT GIVEN IN HOSPITAL. Lisinopril (Prinivil) 10 MG TABLET 1 Tablet ORAL DAILY Comments: Last Taken: 08/13/16 Time: 9 AM Finasteride (Finasteride) 5 MG TABLET 1 Tablet ORAL DAILY Comments: Last Taken: 08/13/16 Time: 9 AM Rivaroxaban (Xarelto) 15 MG TABLET 1 Tablet ORAL Every night Days = 30 Comments: Last Taken: 08/12/16 Time: 9 PM Metoprolol Succinate (Metoprolol Succinate) 200 MG TAB.ER.24H 1 Tablet ORAL Every night Days = 11 Comments: Last Taken: 08/13/16 Time: Atorvastatin Calcium (Atorvastatin Calcium) 20 MG TABLET 1 Tablet ORAL Every night Days = 90 Comments: Last Taken: 08/12/16 Time: 9 PM Tamsulosin HCl (Tamsulosin HCl) 0.4 MG CAP.ER.24H 1 Capsule ORAL TAKE AT BEDTIME Days = 90 Comments: Last Taken: 08/12/16 Time: 9 PM Amiodarone HCl (Amiodarone HCl) 200 MG TABLET 1 Tablet ORAL DAILY Days = 30 Instructions: PLEASE START TAKING 08/21 ONWARDS PRIOR TO THAT TAKE THE 400 MG TABLET PRESCRIBED Levothyroxine Sodium (Levothyroxine Sodium) 100 MCG TABLET 1 Tablet ORAL DAILY BEFORE BREAKFAST Qty = 30 Primidone (Primidone) 50 MG TABLET 2 Tablet ORAL TAKE AT BEDTIME Qty = 30 Furosemide (Furosemide) 20 MG TABLET 2 Tablet ORAL DAILY Qty = 30
--- NOTE | 2017-04-22 14:14 | PN- Att Addend ---
Attending MD Review Statement Attending Statement Attending MD Statement: examined this patient, discuss w/resident/PA/DRYWALL FINISHER FOREMAN, agreed w/resident/PA/DRYWALL FINISHER FOREMAN, discussed with family, reviewed EMR data (avail), discussed w/ nursing, discussed w/case mgmt Attending Assessment/Plan: Laboratory Tests 04/22/17 0815: Sodium Cancelled, Potassium Cancelled, Chloride Cancelled, Carbon Dioxide Cancelled, Anion Gap Cancelled, BUN Cancelled, Creatinine Cancelled, BUN/ Creatinine Ratio Cancelled, Magnesium Cancelled 04/22/17 0815: Anion Gap 10, Estimated GFR 45 L, BUN/Creatinine Ratio 21.3, Magnesium 1.9, Troponin I 3.97 *H, CBC w Diff NO MAN DIFF REQ, RBC 3.44 L, MCV 94.7 H, MCH 31.4 H, RDW 12.8, MPV 8.9, Gran % 94.3 H, Lymphocytes % 2.1 L, Monocytes % 3.5, Eosinophils % 0.1, Basophils % 0 L, Absolute Granulocytes 12.9 H, Absolute Lymphocytes 0.3 L, Absolute Monocytes 0.5, Absolute Eosinophils 0, Absolute Basophils 0, PUBS MCHC 33.2 04/22/17 0215: Troponin I 4.04 *H 04/21/17 2055: Troponin I 3.59 *H 04/21/17 1650: Troponin I 2.88 *H Vital Signs Date Time Temp Pulse Resp B/P B/P Pulse O2 O2 Flow FiO2 Mean Ox Delivery Rate 04/22 1201 100.4 04/22 1000 100.4 86 20 150/80 92 Nasal 4.0L Cannula 04/22 0000 Nasal 4.0L Cannula 04/21 2322 98.0 84 18 148/86 94 Nasal 4.0L Cannula 04/21 2159 83 148/84 04/21 1809 99.2 74 18 154/78 100 04/21 1450 94 Nasal 4.0L Cannula 81-year-old male with past medical history of the atrial fibrillation on Xarelto and amiodarone, 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 Patient on chest x- ray was found to have bilateral patchy opacities suggestive of pneumonia. New Stroke- Repeat CT head shows the stroke. Will d/w neuro to see if they are ok with restarting his anticoagulation with heparin tonight or wait for another day. Carotid usg no significant stenosis. Type 2 UT- d/w cardiology. Cont current management. Troponin trending down now. F/u on echo results. Pneumonia Aspiration- dc zithromax. cont ceftriaxone and added flagyl iv. F/u on wbc. Dysphagia- d/w son Jakub at bedside, ok with NG tube and tube feeds as of now. Will need to d/w family about PEG tube feeds if not improving. UTI- growing E coli senstive to cefazolin. poor prognosis overall given his comorbidities and current clinical situation.
[2017-04-22 15:30] VITALS: BP 14/68
--- NOTE | 2017-04-22 18:30 | NUR ---
NGT ORDERED FOR MEDS AND NUTRITION ATTEMPTED TO PLACE IN L NARES COILED IN THROAT REMOVED 2ND ATTEMPT IN R NARES UNSUCCESSFUL DR DEL TORO AWARE PT DESATING INTO THE 80'S RESP AT BEDSIDE PT PLACED ON 55% VM ABG AND CXR OBTAINED SATS UPTO 93% VSS
--- NOTE | 2017-04-22 20:22 | RADIOLOGY REPORT ---
EXAMINATION: XR PORTABLE CHEST CLINICAL INFORMATION: Cough. Hypoxia. COMPARISON: Chest x-ray of 04/21/2017 and multiple previous chest x-rays dated back to 11/18/2014. CT chest of 12/20/2016. TECHNIQUE: Portable frontal view of the chest was obtained. FINDINGS: The cardiomediastinal silhouette is unchanged. Left-sided bipolar pacemaker is unchanged in configuration with the pacer leads terminating in the expected locations of the right atrium and right ventricle. Diffuse patchy airspace opacities bilaterally, greater in the right upper and mid lung field and left mid and lower lung field are again noted, without significant interval change compared to previous x-ray of 04/19/2017. Multiple external tubing and wires overlie the chest. No pneumothorax. No significant pleural effusions. IMPRESSION: No significant interval change is noted in the bilateral airspace opacities compared to previous chest x-ray of 04/19/2017.
--- NOTE | 2017-04-22 22:17 | Event Note ---
Event Note Event Note: Situation: informed by nursing staff around 21:38 that he had nasal bleeding. Dr. Beasley and myself went to assess the patient. Left nostril was noted to be actively bleeding and upon examination of the throat bright red blood was observed. At this time Rhinorocket in left nostril was placed. He remained vitally stable. On examination, awake, cvs: S1S2, RS:CTA. ABd: soft, nontender. The bleeding seemed to stop at this time. Around 22:00 we were informed that the bleeding restarted and was now from both nostrils. Background: attempts for NG tube placement in both nostrils was done earlier today. As he is NPO secondary to dysphagia. Was on IV heparin. Assessment: Nasal bleeding secondary to mechanical instrumentation. on IV heparin. cxr from earlier : No significant interval change is noted in the bilateral airspace opacities compared to previous chest x-ray of 04/19/2017. Plan: IV heparin discontined. Spoke to precision instrument maker ENT MD. Was advised to keep in the rhinorocket, avoid further manipulation. attending informed of the above will continue to monitor.
[2017-04-22 23:31] LABS: PTT 39 SEC (25-37)
--- NOTE | 2017-04-23 00:03 | NUR ---
LATE NURSING ENTRY: 04/22/17 1900, RESPIRATORY AT BEDSITE, PATIENT PLACED ON 55% MASK, ABG DONE, CHEST X-RAY DONE. PATIENT SAT 96%, BP 160/80. TEMP 99.5 AUXILARY. 2100: PATIENT DEVELOPED NOSE BLEED, AUGER OPERATOR COUGH PERSIST. MD MA AND MD MAYERS TO PLACED PACKING TO LEFT NARIS. AFRIN SPRAY ADMINISTERED ACORDING TO EMAR ORDER. MOUTH CARE GIVEN. SPO2 92% ON 55% OXYGEN MASK. HEPARIN GTT DISCONTINED. WCTM.
[2017-04-23 00:30] VITALS: BP 170/92
[2017-04-23 01:30] VITALS: BP 140/72
--- NOTE | 2017-04-23 07:14 | PN- Housestaff ---
See Addendum Subjective Follow-up For: Stroke CAP UTI Nose bleed Complaints: pt unable to provide hx Tele-Events Since Last Visit: Normal sinus rhythm, 90s to 100s Subjective: Patient had a significant nosebleed episode over the night following trauma whenthe nurses tried to insert NG tube for meds and nutrition. Bleeding was stopped briefly using a nasal rocket to the left nostril. Review of Systems Constitutional: Reports: no symptoms. Objective Last 24 Hrs of Vital Signs/I&O Vital Signs Date Time Temp Pulse Resp B/P B/P Pulse O2 O2 Flow FiO2 Mean Ox Delivery Rate 04/23 0130 100.9 94 24 140/72 95 Venti Mask 55% 04/23 0030 101.3 04/23 0030 101 36 170/92 93 04/23 0000 95 Venti Mask 55% 04/22 2139 99 164/86 04/22 1600 Nasal 4.0L Cannula 04/22 1530 98.3 85 16 14/68 94 Nasal 4.5L Cannula 04/22 1300 99.6 04/22 1201 100.4 04/22 1000 100.4 86 20 150/80 92 Nasal 4.0L Cannula 04/22 0800 94 Nasal 4.0L Cannula Intake & Output 04/23 0800 06/ 0000 04/22 1600 Intake Total 550 400 500 Output Total Balance 550 400 500 Intake, IV 550 400 500 Intake, Oral 0 0 Number 0 Bowel Movements Patient 150 lb Weight Physical Exam General Appearance: Cooperative, Moderate Distress HEENT: Dry blood in the nares Cardiovascular: Regular Rate, Normal S1, Normal S2 Lungs: Clear to Auscultation Abdomen: Normal Bowel Sounds, Soft, No Tenderness Extremities: No Edema Current Medications: Current Medications Sig/Andie Start time Last Medication Dose Route Stop Time Status Admin Acetaminophen 1,000 MG Q6H PRN 04/22 2345 AC N/A 1 UNIT IV Acetaminophen 650 MG ONCE ONE 04/22 930 DC 04/22 MS 04/22 0931 1201 Acetaminophen 120 MG ONCE ONE 04/22 0915 CAN MS 04/22 0916 Acetaminophen 650 MG Q6P PRN 04/19 1930 DC PO Amiodarone HCl 200 MG DAILY 04/19 1913 AC / PO 0920 Aspirin 300 MG DAILY 04/22 1000 AC 04/22 MS 1201 Aspirin 81 MG DAILY 04/21 1000 DC PO Atorvastatin Calcium 80 MG 1700 04/22 1700 AC PO Atorvastatin Calcium 80 MG 1700 04/20 2245 DC 04/20 PO 2239 Azithromycin 500 MG DAILY@1800 04/20 1800 DC 04/21 Sodium Chloride 250 ML IV 1826 Benzonatate 100 MG TID 04/20 1000 DC 04/20 PO 2110 Ceftriaxone Sodium 1,000 MG DAILY@1800 04/20 1800 AC 04/22 IV 1908 Dextrose/Sodium 1,000 ML Q20H 04/21 1600 AC 04/22 Chloride IV 1434 Finasteride 5 MG DAILY 04/19 1913 AC 04/20 PO 0920 Guaifenesin/Codeine 10 ML Q6P PRN 04/21 1245 DC 04/21 Phosphate PO 1331 Guaifenesin/ 10 ML TID 04/20 1000 DC 04/20 Dextromethorphan PO 2110 Heparin Sodium 25,000 UNIT Q24H 04/22 1530 DC 04/22 (Porcine) IV 1719 Sodium Chloride 500 ML Levothyroxine Sodium 50 MCG DAILY 04/23 1000 AC IV Levothyroxine Sodium 0.1 MG DAILY AC 04/20 0700 DC 04/20 PO 0619 Metoprolol Succinate 200 MG DAILY 04/20 1000 AC 04/20 PO 0921 Metronidazole 500 MG Q8H 04/22 2200 AC 04/23 N/A 1 UNIT IV 0537 Metronidazole 500 MG IQ8 04/22 0945 DC 04/22 N/A 1 UNIT IV 1434 Oxycodone HCl 10 MG Q6P PRN 04/19 1930 AC PO Oxymetazoline HCl 1 SPRAY ONCE ONE 04/22 2045 DC 04/22 SAMAN 04/22 Primidone 100 MG AT BEDTIME 04/19 2200 AC 04/20 PO 211 Tamsulosin HCl 0.4 MG AT BEDTIME 04/19 2200 AC 04/20 PO 2111 Last 24 Hrs of Lab/Jonathon Results Last 24 Hrs of Labs/Mics: Laboratory Tests 04/22/17 2230: APTT 39 H 04/22/17 1845: pH 7.45, pCO2 31 L, pO2 71 L, HCO3 21, ABG O2 Sat (Measured) 94.0 L, P-50 ( Temp Corrected) Y, Carboxyhemoglobin 0 L, O2 Concentration % 55%, Temperature 98.3, O2 Delivery Method VM, Phlebotomy Draw Site RIGHT RADIAL 04/22/17 0815: Sodium Cancelled, Potassium Cancelled, Chloride Cancelled, Carbon Dioxide Cancelled, Anion Gap Cancelled, BUN Cancelled, Creatinine Cancelled, BUN/ Creatinine Ratio Cancelled, Magnesium Cancelled 04/22/17 0815: Anion Gap 10, Estimated GFR 45 L, BUN/Creatinine Ratio 21.3, Magnesium 1.9, Troponin I 3.97 *H, CBC w Diff NO MAN DIFF REQ, RBC 3.44 L, MCV 94.7 H, MCH 31.4 H, RDW 12.8, MPV 8.9, Gran % 94.3 H, Lymphocytes % 2.1 L, Monocytes % 3.5, Eosinophils % 0.1, Basophils % 0 L, Absolute Granulocytes 12.9 H, Absolute Lymphocytes 0.3 L, Absolute Monocytes 0.5, Absolute Eosinophils 0, Absolute Basophils 0, PUBS MCHC 33.2 Lines/Diet/Fluids Lines: peripheral lines Assessment/Plan Assessment: Patient is a 81-year-old male with significant past medical history of vertigo, history of left endarterectomy, paroxysmal atrial fibrillation, hypertension, hyperlipidemia, MR, cardiomyopathy s/p pacemaker, GERD, hypothyroidism, history of cholecystectomy, BPH, arthritis, presented with chief complaints of generalized weakness, cough, shortness of breath since last 6 days Vital signs -temperature 100.4, pulse 86, respiratory rate 20, blood pressure 150/80, SPO2 92% on room CXR -Fairly diffuse patchy opacities bilaterally. Findings are most suggestive of infiltrate versus somewhat atypical-appearing pulmonary edema. Echocardiogram 08/13/16 - LVEF-50%,MIld LAD,Mild LVH, Moderate MR,Right ventricular systolic pressure estimated at 42 mmHg. Pertinent labs-WBC 13.7, granulocytes 94.3,hemoglobin 11.1, hematocrit 32.6, creatinine - 1.5, CT scan of head (04/20/2017)-No acute intracranial hemorrhage or territorial infarction. Extensive chronic white matter disease and parenchymal volume loss, for which the possibility of a focal acute ischemic process cannot be conclusively ruled out. CT scan of head (04/21/2017)- No evidence of intracranial hemorrhage. An 9 mm oval focus of hypoattenuation in the left centrum semiovale may reflect an evolving lacunar infarct in this locale. Plan - Acute Nasal Bleed -Patient had a significant nosebleed episode last night following trauma to the nares when the nurses tried to insert NG tube for meds and nutrition. Bleeding was stopped briefly using a nasal rocket to the left nostril and application of afrin spray. Patient removed the rocket during the night but bleeding seems to have been halted briefly. This may need to be repeated if bleeding resumes. -ENT was called last night and will need to see the patient today for definitive mgt as he has blood clot hanging in his throat on exam that might dislodge and cause heavy bleeding if it is not taken care of. Please ensure follow up by ENT! -Heparin was held in the interim. Please inquire Cardiology about how long to hold heparin as I believe patient cannot be off heparin for too long due to the recent stroke -Pt developed a fever last night. Sats and vitals remained stable and a cxr at onset of bleeding did not show any new process. Will repeat a CXR to r/o aspiration PNA, order blood cultures. Pt is on Ceftriaxone/Flagyl. -IV tylenol for pain and fever -F/u AM labs to evaluate for acute blood loss anemia 2/2 the nasal bleed -Neuro following -Consider converting his oral meds to IV or getting a G tube Persistent Cough He has a persistent cough that has been going on almost consistently for the past 2-3 days according to the nurses. Patient came with a mild cough but this has progressively worsened since patient is not longer able to take his oral cough medications. Could be worsened by aspiration, irritation of the back of the throat by the bleeding/clots. Please Monitor closely and treat as appropriate. Acute stroke . * We will continue aspirin -rectal suppository * high-dose statins not given as pt cannot swallow and does not have any NG or G tubes * Heparin on hold temporarily due to nose bleed * Please follow up with cardiology and Neuro on next steps in regard sto AC Pneumonia due to secondary bacterial infection - * Pt is on ceftriaxone * We will continue oxygen to keep SPO2 more than 92% * Please keep head end of the bed elevated * Urine culture is growing gram-negative rods -Escherichia coli. Blood culture is not showing any growth. * Strict intake output charting -patient is incontinent, had 2 wet diapers today. * TRC/Neb Acute on chronic CHF * We will follow echocardiogram * We'll follow cardiology recommendation * Strict intake output charting Urine tract infection * urine analysis-WBC 15-25, leukocyte esterase small, nitrite positive * Patient denies any active symptoms * Urine culture is growing Ecoli AF with controlled ventricular rate, coronary artery disease, hypertension, hypothyroidism * Continue current mgt Diet -NPO, consider discussing about the PEG tube placement in near future with the family. DVT prophylaxis -ALP S CODE status - DNR/DNI Problem List: 1. Stroke 2. Elevated troponin 3. Pneumonia Pain Ratin Pain Location: not able to say due to clinical condition Pain Goal: Remain pain free Pain Plan: IV tylenol Tomorrow's Labs & Rationales: CBC, BEP
--- NOTE | 2017-04-23 08:34 | NUR ---
PHYSICAL THERAPY- ATTEMPTED TO SEE PT, BUT PT W/ CONSTANT COUGH, ELEVATED TEMPERATURE TO 101 DEGREES F, LETHARGIC, NON-VERBAL, AND UNABLE TO FOLLOW COMMANDS. DISCUSSED W/ NSG WHO STATED TO HOLD OFF EVALUATION UNTIL PT MORE ALERT. PT HAS HEAVY COUGHING NON-STOP AND NASAL BLEEDING. WILL CHECK BACK AND FOLLOW APPROPRIATE. THANK YOU, ANTWON DE LEONT
[2017-04-23 09:00] VITALS: BP 152/80
--- NOTE | 2017-04-23 10:48 | NUR ---
ST CONSULT RECEIVED. CHART REVIEWED. PT SEEN AT BEDSIDE W/ MD PRESENT. PT UNABLE TO MAINTAIN APPROPRIATE HIEU FOR PO TRIALS AT THIS TIME DESPITE VERBAL AND TACTILE STIM. ST WILL F/U. DISCUSSED W/ RN AND MD.
[2017-04-23 13:18] LABS: ABSOLUTE BASOPHIL COUNT 0 /CUMM (0.0-0.2); ABSOLUTE EOSINOPHIL COUNT 0 /CUMM (0.0-0.7); ABSOLUTE GRANULOCYTE CT 19.1 /CUMM (1.4-6.5); ABSOLUTE LYMPH COUNT 0.3 /CUMM (1.2-3.4); ABSOLUTE MONOCYTE COUNT 0.4 /CUMM (0.10-0.60); BASOPHIL % 0.1 % (0.0-2.0); EOSINOPHIL % 0 % (0-5); GRANULOCYTE % 96.6 % (42.2-75.2); HEMATOCRIT 32.6 % (42-52); MEAN CORPUSCULAR HGB 31.2 PG (27.0-31.0); MEAN CORPUSCULAR HGB CONC 32.5 G/DL (33.0-37.0); MEAN CORPUSCULAR VOLUME 96.2 FL (80.0-94.0); MEAN PLATELET VOLUME 9.3 FL (7.4-10.4); PLATELET COUNT 117 /CUMM (130-400); RBC DISTRIBUTION WIDTH 13.5 % (11.5-14.5); RED BLOOD CELL CT 3.39 /CUMM (4.70-6.10); WHITE BLOOD CELL COUNT 19.8 /CUMM (4.8-10.8)
--- NOTE | 2017-04-23 13:47 | PN- Cardiology ---
Subjective Subjective: * Patient is non-communicative. * Nasal bleeding last evening. * sinus rhythm * creatinine 1.5 Objective Vital Signs and I&Os Vital Signs Date Time Temp Pulse Resp B/P B/P Pulse O2 O2 Flow FiO2 Mean Ox Delivery Rate 04/23 0929 99.0 04/23 0921 92 Venti Mask 55% 04/23 900 101.0 104 26 152/80 90 Venti Mask 04/23 0130 100.9 04/23 0130 100.9 94 24 140/72 95 Venti Mask 55% 04/23 0030 101.3 04/23 0030 101.3 04/23 0030 101 36 170/92 93 06 0000 95 Venti Mask 55% 04/22 2139 99 164/86 04/22 1600 Nasal 4.0L Cannula 04/22 1530 98.3 85 16 14/68 94 Nasal 4.5L Cannula Intake & Output 04/23 1600 04/23 0800 04/23 0000 04/22 1600 04/22 0800 04/22 0000 Intake Total 550 400 500 400 Output Total Balance 550 400 500 400 Intake, IV 550 400 500 400 Intake, Oral 0 0 Number 0 Bowel Movements Patient 150 lb 150 lb Weight Weight Joy Lift Measurement Method Physical Exam: General: WD/ WN male in NAD; lethargic and non-verbal Neck: no JVD Heart: RRR w/o murmur Lungs: clear bilaterally Extremities: no edema Assessment/Plan Assessment/Plan * This patient has presumes paroxysmal atrial fibrillation despite a prior ablative procedure. In consideration of his stroke he is a candidate for chronic anticoagulation. At present this patient has issues with nasal bleeding. He will need to stay off chronic anticoagulation until this problem resolved. He is currently in a sinus rhythm. Contionue Amiodarone to maintain a sinus rhythm. * There are no current symptoms of decompensated CHF. Continue aspirin, Atorvastatin and Metoprolol. Temporarily holding oral medications should not be an issue. Amiodarone tends to have a long half-life and the other medications can be given WI (aspirin), IV (Metoprolol) or are otherwise not critical. Continue telemetry? Yes
--- NOTE | 2017-04-23 15:18 | RADIOLOGY REPORT ---
EXAMINATION: XR PORTABLE CHEST CLINICAL INFORMATION: Persistent cough and fever. COMPARISON: CXR from 08/12/2016, 04/21/2017 and 04/22/2017 TECHNIQUE: Portable frontal view of the chest was obtained. FINDINGS: Lungs are hypoexpanded. Patchy airspace opacities in both lungs appear worse compared to the recent radiographs, although the apparent worsening may partially be due to increased hypoinflation and technical differences. Cardiac silhouette exhibits stable enlargement. The biventricular pacing leads appear to be in satisfactory position. No pneumothorax, overt pleural effusion or other significant interval change. IMPRESSION: Interval worsening of the multilobar patchy airspace opacity.
[2017-04-23 15:20] VITALS: BP 130/70
--- NOTE | 2017-04-23 20:00 | Event Note ---
Event Note Event Note: Background: is an 81-year-old man admitted at 04/19/2017 for bilateral lower lobe pneumonia, CHF, treated for community-acquired pneumonia initially his hospitalization was complicated by a new stroke as he had repeat ct-head which shows stroke, patient was kept on heparin GTT for his history of A. fib, and the newly diagnosed stroke, he also had dysphasia. His antibiotics changed recently to Flagyl and ceftriaxone to cover for aspiration pneumonia, he had traumatic trial for NG tube placement yesterday which caused epistaxis, he had a nasal packing yesterday and his heparin GTT was held temporarily. He was started on high flow oxygen through Ventimask overnight Today: He was seen by ENT Dr. Hernandez who did a nasal repacking, patient was also evaluated by Dr. Hernandez, he recommended to keep holding heparin till tomorrow, according to Dr. Hernandez recommendation heparin can be started tomorrow if no further bleeding. During the day patient remains on Ventimask with an oxygen saturation of 92%. Situation: At 7:19 PM patient oxygen saturation dropped to 77% on Ventimask, respiratory therapist called stat. Patient put on BiPAP and his oxygen sat. improved to 97%. ABG and chest x-ray was also ordered stat. ABG shows: PH 7.48, PCO2 27, PO2 107, HCO3 20 Chest x-ray is pending, we'll follow Assessment: #Acute hypoxic respiratory failure most likely secondary to worsening aspiration pneumonia, and possibly secondary to recent epistaxis with a resultant clots which could block the respiratory passage. Plan: -We'll keep the patient on BiPAP for now -His respiratory rate is 55, a low dose of IV morphine was ordered -Case was discussed with his son who is the decision maker Teddy Fraser, who initially wants the patient to be comfort measures but when we explained that mean to disconnect the BiPAP and vacuum metalizing supervisor he states that he is not ready for this yet and he decided to keep the patient DNR/DNI. Although family wants DNR DNI they don't want any heroic measures such as transferring the patient to ICU or placing central line In case of any emergency the case to be discussed with his son Teddy, phone#. All of the above was discussed with Dr. Srivastava
--- NOTE | 2017-04-23 20:07 | NUR ---
LATE ENTRY: PT HAD PACKING PLACED BY ENT DR NORMAN 1505. PT'S 02 1 HOUR LATER WAS 79%. PT WAS PUT ON BIPAP AND WAS 96%. PACKING IN L NARE IS OK WITH BIPAP PER ROBERTH FROM AND GALILEA PACHECO
--- NOTE | 2017-04-23 20:18 | RADIOLOGY REPORT ---
EXAMINATION: XR PORTABLE CHEST CLINICAL INFORMATION: Shortness of breath. COMPARISON: Chest x-ray 04/23/2017. TECHNIQUE: Portable frontal view of the chest was obtained. FINDINGS: Allowing for differences in technique, patient positioning and aeration of the lungs, single AP view of the chest demonstrates no significant interval changes in the appearance of the chest. Redemonstrated are confluent and patchy airspace opacities throughout the bilateral lungs, notably within the right upper lobe as well as within the left upper and left lower lobes. This could reflect multifocal pneumonia, pulmonary edema or ARDS. The lungs remain hypoinflated. No right-sided pleural effusions are identified. There are no visible left-sided pleural effusions. Cardiomediastinal contours are stable and appear partially obscured. Redemonstrated is a left chest wall cardiac pacemaker with leads identified in the right atrium and right ventricle. IMPRESSION: No significant interval changes in the appearance of the chest. Unchanged confluent and patchy airspace opacities within the bilateral lungs, which may reflect multilobar pneumonia, edema or ARDS.
--- NOTE | 2017-04-23 21:58 | Event Note ---
Event Note Event Note: Patient tachypneic. Had family with and daughter and son. They are all agreeable with no further aggressive measures, including ICU transfers, central lines. Would like to make patient comfort measures. Around 11:30 pm spoke to family who stated that they wished to take him off Bipap. I discussed the possible of his condition worsening and the possibility of . They wished to proceed with taking off the bipap. Around 6:45 am was called to patient's bedside, as no breathing was noted. Upon assessment, Pupils dilated and non reactive, no corneal reflexes present, no chest excursions noted, no breath sounds or heart sounds heard on auscultation. Time of pronounced at 6:50 am. Pacemaker was deactivated.
[2017-04-23 22:42] VITALS: BP 130/70
--- NOTE | 2017-04-24 08:43 | NUR ---
AT APPROX 0650 PT WAS SEEN NOT BREATHING WHERE DR MA WAS CALLED AND PT WAS THEN PRONOUNCED ; PTS FAMILY WAS PRESENT AND OTHER NOTIFIED; ADMITTING WAS CALLED AND ORGAN BANK CALLED WHERE I SPOKE TO SHEELA AND MADE AWARE THEY WERE NOT GOING TO MOVE FORWARD WITH ANY ORGAN OR TISSUE DONATION; PAPERWORK WAS FILLED AND BROUGHT TO ADMITTING AND POST MORTEM CARE WAS DONE; DISTRIBUT[place] [facility] [place]
--- NOTE | 2017-04-26 18:17 | Discharge Summary ---
See Addendum Visit Information Visit Dates Admission Date: 04/19/17 Discharge Date: - 04/23/17,6:50 AM Hospital Course Course Attending Physician: AMEE PICKARD MD Primary Care Physician: EVI EDWARDS,[facility] Course: Patient is a 81-year-old male with significant past medical history of vertigo, history of left endarterectomy, paroxysmal atrial fibrillation, hypertension, hyperlipidemia, MR, cardiomyopathy s/p pacemaker, GERD, hypothyroidism, history of cholecystectomy, BPH, arthritis, admitted with chief complaints of generalized weakness, cough, shortness of breath for 6 days. We admitted and treated him for community-acquired pneumonia by giving IV ceftriaxone and azithromycin. On 04/20/2017, he found to have right-sided weakness and CT scan showed left MCA infarct. We hold Xarelto for first 24 hour, took neurology consultation. We kept patient NPO. After 24-hour we repeated the CT scan of head , which did not showed any signs of intracranial bleed. We started patient on IV heparin drip. Patient failed swallow evaluation so we took the consent from the family for NG tube insertion. It was difficult and patient started bleeding secondary to it. We took ENT consultation, put rhinorocket and stopped heparin and all anticoagulants. Later patient continue to deteriorate, his saturation dropped and we started him on BIPAP. Discussed with the family about the goals of care, Son Mr Teddy Fraser, who is POA, who decided initially for DNR/DNI, without heroic measures. Despite all measures patient was not improving, so they later decided to change it to comfort measures. They wished to take him off BIPAP. At 6:50 AM on 04/23/2017, he was declared by Milton Fortune. Allergies: Coded Allergies: amoxicillin (Severe, HIVES 02/02/16) Disposition Summary Disposition Principal Diagnosis: Left MCA infarct Additional Diagnosis: Comment according pneumonia Discharge Disposition: Discharge Instructions General Discharge Information Code Status: Comfort Care Only Patient's Diet: Patient Patient's Activity: Patient Follow-Up Instructions/Appts: Patient Medications at Discharge Discharge Medications: Continue taking these medications: Pantoprazole Sodium (Pantoprazole Sodium) 40 MG TABLET. 1 Tablet ORAL Every Morning Instructions: Reason to Stop at ADM: on omeprazole in the hospital Comments: NOT GIVEN IN HOSPITAL. Lisinopril (Prinivil) 10 MG TABLET 1 Tablet ORAL DAILY Comments: Last Taken: 08/13/16 Time: 9 AM Finasteride (Finasteride) 5 MG TABLET 1 Tablet ORAL DAILY Comments: Last Taken: 08/13/16 Time: 9 AM Rivaroxaban (Xarelto) 15 MG TABLET 1 Tablet ORAL Every night Days = 30 Comments: Last Taken: 08/12/16 Time: 9 PM Metoprolol Succinate (Metoprolol Succinate) 200 MG TAB.ER.24H 1 Tablet ORAL Every night Days = 11 Comments: Last Taken: 08/13/16 Time: Atorvastatin Calcium (Atorvastatin Calcium) 20 MG TABLET 1 Tablet ORAL Every night Days = 90 Comments: Last Taken: 08/12/16 Time: 9 PM Tamsulosin HCl (Tamsulosin HCl) 0.4 MG CAP.ER.24H 1 Capsule ORAL TAKE AT BEDTIME Days = 90 Comments: Last Taken: 08/12/16 Time: 9 PM Amiodarone HCl (Amiodarone HCl) 200 MG TABLET 1 Tablet ORAL DAILY Days = 30 Instructions: PLEASE START TAKING 08/21 ONWARDS PRIOR TO THAT TAKE THE 400 MG TABLET PRESCRIBED Levothyroxine Sodium (Levothyroxine Sodium) 100 MCG TABLET 1 Tablet ORAL DAILY BEFORE BREAKFAST Qty = 30 Primidone (Primidone) 50 MG TABLET 2 Tablet ORAL TAKE AT BEDTIME Qty = 30 Furosemide (Furosemide) 20 MG TABLET 2 Tablet ORAL DAILY Qty = 30 Copies To: EVI EDWARDS,JADIEL Attending MD Review Statement Documenting Attending: AMEE PICKARD MD
== END 2017-04-24 09:03 | disposition expired | DRG 193 ==
LOC: ERH 13:23 → ERHI 16:54 → 1NO 16:54 → ENRESERV 17:47 → ENTRNSPT 18:22 → 1NO 18:43 → CMPTRNSPT 19:15 → 1NO 04-20 08:30
PROVIDERS: Internal Medicine; Ophthalmology; Physician Assistant Medical; Student in an Organized Health Care Education/Training Program; ADMIT Internal Medicine
DX: J18.9 Pneumonia, unspecified organism (principal); J96.91 Respiratory failure, unspecified with hypoxia; I63.40 Cerebral infarction due to embolism of unspecified cerebral artery; I24.8 Other forms of acute ischemic heart disease; I42.9 Cardiomyopathy, unspecified; N39.0 Urinary tract infection, site not specified; I48.0 Paroxysmal atrial fibrillation; I10 Essential (primary) hypertension; Z51.5 Encounter for palliative care; Z79.01 Long term (current) use of anticoagulants; E78.5 Hyperlipidemia, unspecified; I34.0 Nonrheumatic mitral (valve) insufficiency; Z95.0 Presence of cardiac pacemaker; K21.9 Gastro-esophageal reflux disease without esophagitis; E03.9 Hypothyroidism, unspecified; N40.0 Benign prostatic hyperplasia without lower urinary tract symptoms; Z87.891 Personal history of nicotine dependence; I25.10 Atherosclerotic heart disease of native coronary artery without angina pectoris; B96.20 Unspecified Escherichia coli [E. coli] as the cause of diseases classified elsewhere
CPT/HCPCS: 1NP; 36415; 81001; 82436; 87040; 87070; 87086; 87804; 87804-59; 93005; 93010; 94799; 96374; 96375; 99291; J0131; J0456; J0696; J0713; J1644; J1940; J3370; J3490; J7040; J7042; J7508